=== PATIENT | female | born 1950 | race Caucasian/White ===

== ENCOUNTER → 2016-06-23 | Outpatient (CLI) | payer OTHER ==
[~2016-06-23] MED LIST: ADVIN25/60 INH; ALBU1AER9 INH; ASPI1TAB83 PO; CHOL1TAB46 PO; COEN100C7 PO; LEVO88TA PO; OMEP20CA9 PO; PRVC/10 PO; ZOLP5TAB PO
[2016-06-23 14:03] LABS: BASO % 0.8 %; BASO ABS # 0.06 K/uL (0-0.2); COMPLETE YES; EOS % 3.6 %; HEMATOCRIT 42.7 % (37-47); LYMPH % 31.1 %; LYMPH ABS # 2.39 K/uL (1.2-3.4); MEAN CELL VOLUME 85.7 fL (80-100); MEAN CORPUSCULAR HEMOGLOBIN 28.9 pg (25-34); MEAN CORPUSCULAR HGB CONC 33.7 g/dl (32-36); MEAN PLATELET VOLUME 10.5 fL (7.4-10.4); MONO % 5.6 %; NEUT % 58.9 %; PLATELET COUNT 299 K/uL (130-400); RED BLOOD COUNT 4.98 M/uL (4.2-5.4); WHITE BLOOD COUNT 7.69 K/uL (4.8-10.8)
[2016-06-23 14:15] LABS: ALT/SGPT 22 U/L (12-78); BLOOD UREA NITROGEN 12 mg/dl (7-18); BUN/CREATININE RATIO 14.4 (10-20); C-REACTIVE PROTEIN 0.81 mg/dl (0-0.29); CALCIUM 8.7 mg/dl (8.5-10.1); CARBON DIOXIDE 25 mmol/L (21-32); CHLORIDE 107 mmol/L (98-107); GLUCOSE 104 mg/dl (70-99); POTASSIUM 3.7 mmol/L (3.5-5.1); SODIUM 141 mmol/L (136-145)
[2016-06-23 14:25] LABS: ALKALINE PHOSPHATASE 75 U/L (45-117); AST/SGOT 18 U/L (15-37); RHEUMATOID FACTOR < 10.0 U/mL (0-15)
[2016-06-23 18:50] LABS: LYME DISEASE AB IGM NEG (NEG)
[2016-06-23 18:51] LABS: LYME DISEASE AB IGG NEG (NEG)
[2016-06-26 01:27] LABS: CYCLIC CITRULLINATED PEPT IGG <16 UNITS (<20)
== END | disposition home or self-care (01) ==
LOC: C.LABBC 10:03
PROVIDERS: ATTEND Family Medicine
DX: M79.1 Myalgia (principal)

== ENCOUNTER → 2016-06-28 | Day surgery (SDC) | payer OTHER ==
[2016-06-16 12:33] VITALS: BMI 27.0
[~2016-06-28] VITALS: Ht 162.6 cm; Wt 72.7 kg
[~2016-06-28] MED LIST changes: +FENTANYL CITRATE INJ 50 MCG/1 ML 2 ML VIAL ONE; +LIDOCAINE HCL 2% 2 ML VIAL (20MG/ML) ONE; +PROPOFOL IV EMULSION 10 MG/ML 20 ML VIAL IV ONE; +SODIUM CHLORIDE 0.9% 500ML 500 ML IV ONE
[2016-06-28 14:35] VITALS: Ht 162.6 cm; Wt 72.7 kg
--- NOTE | 2016-06-28 15:04 | Endo History and Physical ---
History & Physical Date of Service: Jun 28, 2016. Chief Complaint: reflux Referring Physician: Camryn AGUILAR History of Present Illness 65 yo CF who presents for EGD secondary to GERD. Past Medical History Asthma, Reflux, Thyroid Disease Past Surgical History Hx Cardiac Surgery: Yes (HEART CATH-NO STENTS) Hx Internal Defibrillator: No Hx Pacemaker: No Hx Abdominal Surgery: Yes (JENIFFER BSO) Hx of Implantable Prosthesis: No Hx Post-Op Nausea and Vomiting: Yes Hx Cancer Surgery: No Hx Thoracic Surgery: No Hx Orthopedic: Yes (RT/LEFT KNEE ARTHROSCOPY, LT SHOULDER TISSURE REMOVAL) Hx Urinary Tract Surgery: No Family History None Social History Smoking Status: Current Every Day Smoker Hx Substance Use: No Hx Alcohol Use: Yes (RARELY) Allergies Coded Allergies: Bacitracin (Verified Allergy, Intermediate, redness, 06/28/16) Polymyxin B (Verified Allergy, Intermediate, redness, 06/28/16) Amoxicillin (Verified Allergy, Unknown, RASH, 06/28/16) Citalopram (Verified Allergy, Unknown, unkn, 06/28/16) Codeine (Verified Adverse Reaction, Unknown, n/v, 06/28/16) Morphine and Related (Verified Adverse Reaction, Unknown, N/V, 06/28/16) Moxifloxacin (Verified Adverse Reaction, Unknown, nausea, 06/28/16) Oxycodone (Verified Adverse Reaction, Unknown, NAUSEA, 06/28/16) Statins (Verified Adverse Reaction, Unknown, muscle weakness, 06/28/16) Tramadol (Verified Adverse Reaction, Unknown, nausea, 06/28/16) Current Medications Reported Home Medications Medications Dose Route/Sig Max Daily Dose Days Date Category Advair Diskus 250/50 60 Dose (Fluticasone Prop/Salmeterol) 1 Ea Aerp 1 Puff INH BID PRN 06/16/16 Reported Ambien (Zolpidem Tartrate) 5 Mg Tab 5 Mg PO HS 06/16/16 Reported Coq10 (Coenzyme Q10 (Ubidecarenone)) 100 Mg Cap 1 Cap PO QAM 06/16/16 Reported Vitamin D3 (Cholecalciferol) 5,000 Unit Tab 1 Tab PO QAM 06/16/16 Reported Proair Hfa (Albuterol) Aers 2 Puff INH Q4H PRN 07/14/15 Reported Synthroid (Levothyroxine Sodium) 88 Mcg Tab 1 Tab PO QAM 30 07/14/15 Reported Aspirin 81 Mg Tab 1 Tab PO QAM 30 07/14/15 Reported Vital Signs Weight (Kilograms): 72.73 Height (Feet): 5 Height (Inches): 4 Physical Exam General Appearance: WD/WN, no apparent distress Respiratory/Chest: Auscultation: breath sounds normal Cardiovascular: Heart Auscultation: RRR Abdomen: Bowel Sounds: normal Inspection & Palpation: soft, non-distended, no tenderness, guarding & rebound Assessment and Plan Assessment: 65 yo CF who presents for EGD secondary to GERD. Plan: Proceed with EGD.
--- NOTE | 2016-06-28 15:47 | GI REPORT ---
Procedure Date: 06/28/2016 2:30 PM Procedure: Upper GI endoscopy Indications: Gastro-esophageal reflux disease Medicines: Monitored Anesthesia Care Complications: No immediate complications. Estimated Blood Loss: Estimated blood loss: none. Procedure: Pre-Anesthesia Assessment: - Prior to the procedure, a History and Physical was performed, and patient medications and allergies were reviewed. The patient's tolerance of previous anesthesia was also reviewed. The risks and benefits of the procedure and the sedation options and risks were discussed with the patient. All questions were answered, and informed consent was obtained. Prior Anticoagulants: The patient has taken aspirin, last dose was 1 day prior to procedure. ASA Grade Assessment: II - A patient with mild systemic disease. After reviewing the risks and benefits, the patient was deemed in satisfactory condition to undergo the procedure. After obtaining informed consent, the endoscope was passed under direct vision. Throughout the procedure, the patient's blood pressure, pulse, and oxygen saturations were monitored continuously. The scope was introduced through the mouth, and advanced to the second part of duodenum. The upper GI endoscopy was accomplished without difficulty. The patient tolerated the procedure well. Findings: The esophagus was normal. Localized minimal inflammation characterized by erythema was found in the gastric antrum. Biopsies were taken with a cold forceps for histology. The examined duodenum was normal. Impression: - Normal esophagus. - Gastritis. Biopsied. - Normal examined duodenum. Recommendation: - Resume previous diet. - Use Protonix (pantoprazole) 40 mg PO daily. - Continue present medications. - Await pathology results. - Return to GI office as previously scheduled. Abdiaziz Toro DO 06/28/2016 3:47:15 PM This report has been signed electronically. Note Initiated On: 06/28/2016 2:30 PM I attest to the content of the Intraoperative Record and orders documented therein, exceptions below
--- NOTE | 2016-06-28 15:47 | Discharge Instructions ---
Endoscopy Patient Instructions Date / Procedure(s) Performed Jun 28, 2016. EGD Allergy Information Coded Allergies: Bacitracin (Verified Allergy, Intermediate, redness, 06/28/16) Polymyxin B (Verified Allergy, Intermediate, redness, 06/28/16) Amoxicillin (Verified Allergy, Unknown, RASH, 06/28/16) Citalopram (Verified Allergy, Unknown, unkn, 06/28/16) Codeine (Verified Adverse Reaction, Unknown, n/v, 06/28/16) Morphine and Related (Verified Adverse Reaction, Unknown, N/V, 06/28/16) Moxifloxacin (Verified Adverse Reaction, Unknown, nausea, 06/28/16) Oxycodone (Verified Adverse Reaction, Unknown, NAUSEA, 06/28/16) Statins (Verified Adverse Reaction, Unknown, muscle weakness, 06/28/16) Tramadol (Verified Adverse Reaction, Unknown, nausea, 06/28/16) Discharge Date / Findings Jun 28, 2016. Gastritis s/p biopsies Medication Instructions Stopped Medication(s): stopped all medication OK to resume all medications today as prescribed Reported Home Medications Medications Dose Route/Sig Max Daily Dose Days Date Category Advair Diskus 250/50 60 Dose (Fluticasone Prop/Salmeterol) 1 Ea Aerp 1 Puff INH BID PRN 06/16/16 Reported Ambien (Zolpidem Tartrate) 5 Mg Tab 5 Mg PO HS 06/16/16 Reported Coq10 (Coenzyme Q10 (Ubidecarenone)) 100 Mg Cap 1 Cap PO QAM 06/16/16 Reported Vitamin D3 (Cholecalciferol) 5,000 Unit Tab 1 Tab PO QAM 06/16/16 Reported Proair Hfa (Albuterol) Aers 2 Puff INH Q4H PRN 07/14/15 Reported Synthroid (Levothyroxine Sodium) 88 Mcg Tab 1 Tab PO QAM 30 07/14/15 Reported Aspirin 81 Mg Tab 1 Tab PO QAM 30 07/14/15 Reported Provider Instructions Activity Restrictions - No exercising or heavy lifting for 24 hours. - Do not drink alcohol the day of the procedure. - Do not drive a car or operate machinery until the day after the procedure. - Do not make any important decisions or sign important papers in 24 hours after the procedure. Following Day: - Return to full activity which may include returning to work/school. Diet Start your diet with liquids and light foods (jello, soup, juice, toast). Then eat your usual diet if not nauseated. Treatment For Common After Affects For mild abdominal pain, bloating, or excessive gas: - Rest - Eat lightly - Lie on right side Follow-Up Information Follow-up with Camryn AGUILAR as scheduled Anesthesia Information What You Should Know You have had a procedure that required some medicine to reduce anxiety and discomfort. This treatment is called moderate sedation. After receiving the treatment, you may be sleepy, but you will be able to breathe on your own. The effects of the treatment may last for several hours. Follow these instructions along with Activity/Diet recommendations noted above: * Do NOT do anything where dizziness or clumsiness would be dangerous. * Rest quietly at home today, then you can be up and about tomorrow. * Have a responsible person stay with you the rest of today. * You may have had an I.V. today. If so, you may take the dressing off later today. Recommendations Call your doctor if: * Trouble breathing * Continuous vomiting for more than 24 hours * Temperature above 101 degrees * Severe abdominal pain or bloating * Pain not relieved by pain medicine ordered * There is increased drainage or redness from any incision * A large amount of rectal bleeding greater than 2-3 tablespoons. (If you had a polyp/s removed or have hemorrhoids, a small amount of blood - from the rectum is to be expected.) * You have any unanswered questions or concerns. IN THE EVENT OF A SERIOUS EMERGENCY, GO TO THE NEAREST EMERGENCY ROOM Your discharge instructions were prepared by provider Abdiaziz Toro. Patient Instructions Signature Page Jessie Das Patient (or Guardian) Signature/Date: I have read and understand the instructions given to me by my caregivers. Caregiver/RN/Doctor Signature/Date: The above-named patient and/or guardian has received patient instructions on this date. + Original Patient Signature Page (only) stays with chart. Please make copy for patient.
[2016-06-28 16:03] VITALS: BP 129/76; PULSE 74; O2SAT 96
--- NOTE | 2016-06-28 16:04 | Anesthesiology Progress Note ---
Anesthesia Post Op Note Date & Time Jun 28, 2016 at 16:04 Vital Signs Pain Intensity: 0 Vital Signs Past 12 Hours Date Time Temp Pulse Resp B/P Pulse Ox O2 Delivery O2 Flow Rate FiO2 06/28/16 15:48 80 16 137/68 95 Room Air 06/28/16 14:45 36.6 70 18 169/83 99 Room Air Notes Mental Status: alert / awake / arousable, participated in evaluation Pt Amnestic to Procedure: Yes Nausea / Vomiting: adequately controlled Pain: adequately controlled Airway Patency, RR, SpO2: stable & adequate BP & HR: stable & adequate Hydration State: stable & adequate Anesthetic Complications: no major complications apparent
== END | disposition home or self-care (01) ==
LOC: C.GI 13:55
PROVIDERS: ATTEND Internal Medicine
DX: K31.89 Other diseases of stomach and duodenum (principal); K21.9 Gastro-esophageal reflux disease without esophagitis; F17.210 Nicotine dependence, cigarettes, uncomplicated; E07.9 Disorder of thyroid, unspecified

== ENCOUNTER → 2016-08-14 | Outpatient (CLI) | payer OTHER ==
[~2016-08-14] MED LIST changes: +ALBU18002 INH; +ATOR10TA82 PO; +CEPH500C2 PO; +CYAN100020 PO; -FENTANYL CITRATE INJ 50 MCG/1 ML 2 ML VIAL ONE; +FURO-85 PO; +HYDR-5688 PO; -LIDOCAINE HCL 2% 2 ML VIAL (20MG/ML) ONE; +NTRGSL/4 UT; -OMEP20CA9 PO; +PANT40TA PO; +PRED50TA PO; -PROPOFOL IV EMULSION 10 MG/ML 20 ML VIAL IV ONE; -PRVC/10 PO; -SODIUM CHLORIDE 0.9% 500ML 500 ML IV ONE; +ZNTT/150 PO
--- NOTE | 2016-08-15 05:56 | PAP/PSG TECHNICIAN REPORT ---
[facility] Water Attendant Polysomnogram Report Study name: None Report date: 08/15/2016 Study date: 08/14/2016 Referring Physician: DR. GOMEZ Name: YARA DAS Interpreting Physician: Mo Moulton D.O. Date of : 1950 Water Attendant: Abdifatah Driver RPSGT. Sex: Female Age: 65 StudyType: PSG Weight: 161 lbs Height: 65 years, Height 5' 4" BMI: 27.63 Medications: OMEPRAZOLE 20 MG, RANITIDINE HCL 300 MG, ADVAIR DISKUS, PRO AIR HFA 108 90 BASE, PROVASTATIN SODIUM 10 MG, LEVOTHYROXINE SODIUM 88 MCG, ZOLPIDEM TARTRATE 5 MG, ASPIRIN 81 MG, NITROSTAT 0.4 MG, FUROSEMIDE 20 MG Patient History PATIENT HAS HISTORY OF FATIGUE AND DAYTIME SLEEPINESS. SHE GENERALLY HAS INSOMNIA A FEW TIMES A WEEK. SHE HAD A SLEEP STUDY DONE IN 2011 THAT SHOWED MILD PABLO. SHE IS HERE TODAY FOR AN EVALUATION OF PABLO. ESS = 7 RM 5 Parameters Monitored NPSG: E1-M2, E2-M1, Fp1-M2, Fp2-M1, F3-M2, F4-M2, F4-M1, C3-M2, C4-M2, C4-M1, O1-M2, O2-M2, O2-M1, T3-M2, T4-M1, P3-M2, P4-M1, CHIN1, CHIN2, HR, EKG, Legs, PFLOW, SNOR, FLOW, CFLOW, Tidal Volume, THOR, ABDO, SpO2, PLTH, CPRESS, ETCO2 Wave, ETCO2, pH Sleep Architecture Sleep Stages Time at Lights Off 10:11:05 PM STAGES Time (min.) TST (%) Time at Lights On 5:30:05 AM Wake 49.0 -- Total Recording Time (TRT) 439.50 min. N1 8.0 2 Total Sleep Period (TSP) 399.5 min. N2 156.0 40 Total Sleep Time (TST) 390.0min. N3 137.0 35 Awake Time 49.5 min. REM 89.0 23 Wake after Sleep Onset 10.0 min. Sleep Efficiency (SE) 89 % Sleep Onset Latency (HATTIE) 39.0 min. Number of Stage 1 Shifts None Awakenings 8 Stage Changes 49 Number of REM periods 5 REM 89.0 23 REM Latency 64.0 min. NREM 301.0 77 Body Position Analysis Supine Right Left Side Prone Vertical Total Sleep Time (min.) 20.9 0.0 390.0 390.00 0.0 0.0 Total Sleep Time (%) 0% 0% 100% 100 0% N/A% Total Sleep Time REM (min.) 0.0 0.0 89.0 None 0.0 0.0 Total Sleep Time NREM (min.) 0.0 0.0 301.0 None 0.0 0.0 Intermittent Wake (min.) 20.9 0.0 28.1 None 0.0 0.0 Total Sleep Period (%) 0% None None None None None Arousals Myoclonus (PLM) * Events Count Index Events Count Index Spontaneous 11 2 Events Awake (PLMW) 45 55.1 Respiratory 2 0.3 Events Asleep w/ Arousal (PLMA) 9 1.4 PLM 9 1 Events Asleep w/o Arousal (PLMS) 102 15.7 Snoring 2 0 Total Asleep 111 17.1 Total 24 4 Total 156 21 Respiratory Analysis * CA OA MA CH H RERA Total Count 1 25 0 0 49 0 75 Index 0.2 3.8 0.0 0 7.5 0 11.5 Mean Duration 17.2 16.7 0.0 0.00 21.0 0.0 19.5 Longest Duration 17.2 35.5 0.0 0.00 0.0 0.0 56.1 Respiratory Event Summary Total Supine ~Supine Right Left Prone REM NREM Apneas Count 26 N/A 26 N/A 26 N/A 23 3 Index 4.0 N/A 4 N/A 4.0 N/A 16 1 Hypopneas (4% Desat) Count 49 N/A 49 N/A 49 N/A 46 3 Index 7.5 N/A 8 N/A 7.5 N/A 31.0 0.6 Apneas & All Hypopneas Count 75 N/A 75 N/A 75 N/A 69 6 Index 11.5 N/A 12 N/A 12 N/A 46.5 1.2 Respiratory Events ([place]+All Hyp+RERA) Count 75 N/A 75 N/A 75 N/A 69 6 Index 11.5 N/A 12 N/A 11.5 N/A 46.5 1.2 Respiratory Related Arousal Count 2 N/A 2 N/A 2 N/A 1 1 Index 0.3 N/A 0 N/A 0 N/A 1 0 Snoring Analysis Supine Right Left Prone REM NREM Total Snore duration 86.7 min Snores count N/A N/A 3,490 N/A 756 2,734 3,490 Snore mean duration 1.5 Sec Snores index N/A N/A 537 N/A 509.7 545.0 536.9 TST with snoring (%) 22.2% Desaturation Event Summary: Minimum %SpO2 Event Count Mean/Min/Max Duration(sec.) Desaturation Index % Time In Bed > 90 67 25.2 / 10.0 / 48.8 11.2 81.9 86 - 90 30 21.1 / 8.8 / 55.3 24.4 16.9 81 - 85 0 N/A 0.0 1.0 76 - 80 0 N/A 0.0 0.1 71 - 75 0 N/A 0.0 0.0 66 - 70 0 N/A 0.0 0.0 61 - 65 0 N/A 0.0 0.0 56 - 60 0 N/A 0.0 0.0 51 - 55 0 N/A 0.0 0.0 < 50 0 N/A 0.0 0.0 Total REM NREM Awake <50% 0.0 min. 0.0 min. 0.0 min. 0.0 min. 51 - 60% 0.0 min. 0.0 min. 0.0 min. 0.0 min. 61 - 70% 0.0 min. 0.0 min. 0.0 min. 0.0 min. 71 - 80% 0.7 min. 0.7 min. 0.0 min. 0.0 min. 81 - 90% 78.2 min. 34.5 min. 42.4 min. 1.3 min. 91 - 100% 357.7 min. 53.9 min. 258.4 min. 45.4 min. Average 92 91 92 94 Minimum SpO2 74 74 85 87 Desaturation Event Index 11.1 43.8 1.2 12.2 # Desat. Events below 89% 48 44 4 N/A Time(%) with Saturation below 89% 4.4 3.8 0.5 0.1 Time(min.) with Saturation below 89% 19.0 16.5 2.2 0.3 Time (mins) REM (mins) NREM (mins) % of TST SpO2 Below 90% 68 63 N5 7.7 SpO2 Below 88% 19 0 0 3 Heart Rate Analysis Min (bpm) Max (bpm) Average (bpm) Awake 69 127 76 NREM 64 94 74 REM 67 96 75 Overall 64 96 74 Supplemental O2 Values Minimum O2 level: None Value Start Time End Time Water Attendant Comments Ms. Das slept in the supine and left positions. No cardiac arrhythmia noted. Leg movements noted. No bruxism noted. Snoring was noted and scored as a 4 on a scale of 1 through 5. (0=no snoring, 5=snoring loud enough to be heard through a closed door or down the [address]) Ms. Das awoke to use the restroom 0 times during the night. Ms. Das stated I slept as well as I do when I am in my own bed. The final report will be interpreted and signed by a sleep physician. The completed physician report will then be placed in the patient medical record. Therapy (cm H2O) 0 TIB (min.) 439.0 TST (min.) 390.0 Sleep Onset (min.) 39.0 REM Onset From Sleep (min.) 64.0 Sleep Efficiency % 89 Wakefulness (%) 11 Wakefulness (min.) 49.5 NREM 1 (%) 2 NREM 1 (min.) 8.0 NREM 2 (%) 40 NREM 2 (min.) 156.0 NREM 3 (%) 35 NREM 3 (min.) 137.0 REM (%) 23 REM (min.) 89.0 # Arousals 24 Arousal Index 4 # Snore 3,490 Snore Index 536.9 AHI 11.5 AHI Supine N/A AHI Non-Supine 12 NREM AHI 1.2 REM AHI 46.5 RDI 11.5 # Obstructive Apnea 25 # Central Apnea 1 # Mixed Apnea 0 # Hypopneas 49 RERAs 0 Total Respiratory Events 83 Time Below SpO2 89% (min.) 18.7 Mean NREM SpO2 (%) 92 Mean REM SpO2 (%) 91 Mean Sleep SpO2 (%) 91 Min NREM SpO2 (%) 85 Min REM SpO2 (%) 74 Position Supine (min.) 20.9 Position Non-supine (min.) 390.0 LM Index Sleep 17.1 LM Index NREM 22.1 LM Index REM 0.0 Mean Heart Rate (bpm) 74 Min Heart Rate (bpm) 64
--- NOTE | 2016-08-17 15:05 | POLYSOMNOGRAPH REPORT ---
REFERRING PHYSICIAN: Dr Key CLINICAL DATA: The patient is a 65-year-old female. She has complaints of excessive daytime somnolence and feeling exhausted. She also has insomnia. Her [place] sleepiness scale score is 7. Her BMI is 27.63. This was an in-lab sleep study. SLEEP ARCHITECTURE: The total sleep period was 399.5 minutes. Total sleep time was 390.0 minutes. Sleep efficiency was 89%. Sleep onset latency was prolonged at 39 minutes. Wake after sleep onset was only 10 minutes. Sleep consisted of stage N1 2%, stage N2 40%, stage N3 35%, stage REM 23%. AROUSAL DATA: The patient had a total of 24 arousals including 11 spontaneous arousals, 2 respiratory arousals, 9 PLM arousals, and 2 snoring arousals. The arousal index was 4. PERIODIC LIMB MOVEMENTS DATA: The patient had a total of 111 periodic limb movements of sleep for an index of 17.1. Nine of these were associated with arousals for a PLM arousal index of only 1.4. ELECTROCARDIOGRAM: The patient's cardiac rates ranged from 64-96 beats per minute. No arrhythmias were noted. RESPIRATORY DATA: The patient had a total of 75 respiratory events including 1 central apnea, 25 obstructive apneas, and 49 hypopneas. The apnea-hypopnea index was elevated at 11.5 events per hour. This reflects mild sleep apnea. The longest apnea was 35.5 seconds. The average hypopnea was 21 seconds. OXIMETRY DATA: The average saturation was 92%. The minimum saturation was 74%. She had a total of 19 minutes with saturations less than 88%. FRAME FIXER'S COMMENTS: The patient slept in the supine and left positions. No cardiac arrhythmia noted. Leg movements noted. No bruxism noted. Snoring was noted and scored as a 4 on a scale of 1 through 5. IMPRESSION: 1. Obstructive sleep apnea. 2. Fibromyalgia by history. COMMENTS: The patient has mild apnea. As noted, her apnea-hypopnea index was 11.5. Her sleep efficiency was normal. Sleep architecture was normal. She did have some desaturations likely related to sleep disordered breathing. The patient historically has significant symptoms. She also has asthma and hypothyroidism by history in addition to fibromyalgia. Treatment would be advised. RECOMMENDATIONS: 1. It is advised that patient be given a trial of nasal CPAP. She could be treated with auto CPAP. The alternative would be referral back to the sleep lab for a CPAP titration study in the lab. 2. If patient refuses treatment with nasal CPAP therapy, consideration could be given to treatment with an oral appliance if she has relatively good dentition. 3. The patient has a mild elevation of body mass index at 27.63. A weight reduction program is advised. ARIA
== END | disposition home or self-care (01) ==
LOC: C.NEUR 21:00
PROVIDERS: ATTEND Family Medicine
DX: G47.19 Other hypersomnia (principal)

== ENCOUNTER 2016-09-01 18:24 | Emergency (ER) | payer OTHER ==
[~2016-09-01] VITALS: Ht 162.6 cm; Wt 75.5 kg
[~2016-09-01 18:24] MED LIST changes: -ALBU18002 INH; -ATOR10TA82 PO; -CEPH500C2 PO; -CYAN100020 PO; -FURO-85 PO; -HYDR-5688 PO; -NTRGSL/4 UT; -PANT40TA PO; -PRED50TA PO; -ZNTT/150 PO
[2016-09-01 18:27] VITALS: TEMP 36.7; Ht 162.6 cm; Wt 75.5 kg
[2016-09-01] MEDS ORDERED: KETOROLAC TROMETHAMINE 30 MG/ML VIAL IV STA (19:05)
[2016-09-01] MEDS ORDERED: ONDANSETRON INJ 2 MG/ML 2 ML VIAL IV STA (19:05)
[2016-09-01 19:41] LABS: BASO % 0.7 %; BASO ABS # 0.05 K/uL (0-0.2); COMPLETE YES; EOS % 2.7 %; HEMATOCRIT 40.5 % (37-47); IG% 0.1 %; LYMPH % 33.3 %; LYMPH ABS # 2.25 K/uL (1.2-3.4); MEAN CORPUSCULAR HEMOGLOBIN 29.3 pg (25-34); MEAN CORPUSCULAR HGB CONC 34.1 g/dl (32-36); MEAN PLATELET VOLUME 10.1 fL (7.4-10.4); MONO % 6.5 %; NEUT % 56.7 %; PLATELET COUNT 269 K/uL (130-400); RED BLOOD COUNT 4.71 M/uL (4.2-5.4); WHITE BLOOD COUNT 6.75 K/uL (4.8-10.8)
--- NOTE | 2016-09-01 20:06 | DIAGNOSTIC IMAGING REPORT ---
CT SCAN OF THE BRAIN WITHOUT IV CONTRAST CLINICAL HISTORY: Headache. COMPARISON STUDY: CT of the brain dated 11/18/2013. TECHNIQUE: Unenhanced axial CT scan of the brain is performed from the vertex to the skull base. Automated dose control exposure was utilized. CT DOSE: 537.48 mGy.cm FINDINGS: Brain parenchyma: The brain parenchyma is normal in appearance. There is no hemorrhage, mass effect, or evidence of acute territorial ischemia by CT criteria. Irizarry-white matter is preserved. No extra-axial fluid collection is seen. Ventricles, sulci, cisterns: Normal in configuration. Intracranial vasculature: There is mild atherosclerotic calcification of the cavernous carotid arteries. Calvarium: Unremarkable. Sinuses and mastoids: Findings suggest previous paranasal sinus surgery. The visualized paranasal sinuses are clear. The mastoid air cells are well pneumatized. Orbits: The bony orbits are grossly intact. IMPRESSION: No acute intracranial abnormality. Electronically signed by: Kory Li M.D. 09/01/2016 8:04 PM Dictated Date/Time: 09/01/2016 8:03 PM
[2016-09-01 20:11] LABS: BUN/CREATININE RATIO 19.9 (10-20); CALCIUM 8.5 mg/dl (8.5-10.1); CREATININE 0.78 mg/dl (0.60-1.20); POTASSIUM 4.3 mmol/L (3.5-5.1)
--- NOTE | 2016-09-01 20:38 | EMERGENCY ROOM VISIT NOTE ---
History Report prepared by [place]: Che Mcelroy Under the Supervision of: Dr. Angela Flores D.O. First contact with patient: 18:43 Chief Complaint: HEADACHE Stated Complaint: MIGRAINE History of Present Illness The patient is a 65 year old female who presents to the Emergency Room with complaints of a persistent left-sided headache that started 11 hours ago, around 0830. She is also experiencing left-sided neck pain that radiates across her neck and into her shoulders. The patient states that she also experiencing nausea, but denies vomiting. She also denies abdominal pain, arm or leg weakness , and leg cramping or swelling. The patient attempted to relieve her headache with Advil Migraine, but it offered her no relief. She states that her typical migraines are relieved in 15 minutes with Advil Migraine. The patient has a history of migraines, but she states that she does not get them very often. Her most recent migraine was about 1 month ago. She states that this is the worst migraine that she has ever experienced. The patient is unsure of if she has ever had a CT of her head. She does not follow with a neurologist for her migraines. The patient states that she has been eating and drinking normally. The patient adds that she has been experiencing a cough and was recently diagnosed with bronchitis, which she is on a z-pack for. Source of History: patient Onset: 11 hours ago, around 0830 Position: head Quality: other (left-sided headache) Timing: other (persistent) Modifying Factors (Relieving): other (None) Associated Symptoms: + back pain (upper, in shoulder blades), + nausea, + neck pain, No abdominal pain, No vomiting, No weakness Note: no leg cramping or swelling Review of Systems See HPI for pertinent positives & negatives. A total of 10 systems reviewed and were otherwise negative. Past Medical & Surgical Medical Problems: (1) Asthma (2) Hyperlipidemia (3) Hypothyroidism (4) Migraines Family History FH: heart disease FHx: cancer Social History Smoking Status: Current Every Day Smoker Alcohol Use: none Drug Use: none Marital Status: Housing Status: lives with family Occupation Status: retired Current/Historical Medications Scheduled Aspirin (Aspirin), 1 TAB PO QAM Cholecalciferol (Vitamin D3), 1 TAB PO QAM Coenzyme Q10 (Ubidecarenone) (Coq10), 1 CAP PO QAM Levothyroxine Sodium (Synthroid), 1 TAB PO QAM Zolpidem Tartrate (Ambien), 5 MG PO HS Scheduled PRN Albuterol (Proair Hfa), 2 PUFF INH Q4H PRN for SOB/Wheezing Fluticasone Prop/Salmeterol (Advair Diskus 250/50 60 Dose), 1 PUFF INH BID PRN for Shortness of Breath Allergies Coded Allergies: Bacitracin (Verified Allergy, Intermediate, redness, 06/28/16) Polymyxin B (Verified Allergy, Intermediate, redness, 06/28/16) Amoxicillin (Verified Allergy, Unknown, RASH, 06/28/16) Citalopram (Verified Allergy, Unknown, unkn, 06/28/16) Codeine (Verified Adverse Reaction, Unknown, n/v, 06/28/16) Morphine and Related (Verified Adverse Reaction, Unknown, N/V, 06/28/16) Moxifloxacin (Verified Adverse Reaction, Unknown, nausea, 06/28/16) Oxycodone (Verified Adverse Reaction, Unknown, NAUSEA, 06/28/16) Statins (Verified Adverse Reaction, Unknown, muscle weakness, 06/28/16) Tramadol (Verified Adverse Reaction, Unknown, nausea, 06/28/16) Physical Exam Vital Signs Date Time Temp Pulse Resp B/P Pulse Ox O2 Delivery O2 Flow Rate FiO2 09/01/16 20:54 65 18 166/99 96 09/01/16 18:27 36.7 84 16 149/91 95 Room Air Physical Exam HEENT: Head - normocephalic and atraumatic. Pupils are equal, round, and reactive to light. Extraocular eye muscles are intact and sclera are anicteric. Ears - bilaterally patent canals with noninjected tympanic membranes and no evidence of hemotympanum. Nose - moist nasal mucosa without discharge. Mouth - moist buccal mucosa. Oropharynx is nonerythematous and there is no tonsillar exudate or edema noted. Neck: Supple; no JVD, nuchal rigidity, cervical lymphadenopathy. Heart: Regular rate and rhythm. There is a normal S1 and S2 with no murmurs, clicks, or gallops appreciated. Lungs: Clear to auscultation bilaterally with no wheezes, rales, or rhonchi. Abdomen: Soft, completely nontender, nondistended, with good bowel sounds. There are no palpable pulsatile masses or hepatosplenomegaly. There is no guarding, rigidity, or rebound noted. Extremities: No evidence of cyanosis, clubbing, or edema. There are easily palpable peripheral pulses. Neuro:The patient is awake and alert, oriented to day, time, and place. Muscle strength is 5/5 in all 4 extremities. The patient has equal production aide strength and equal pedal push and pull. There are no cerebellar signs. Medical Decision & Procedures ER Provider Diagnostic Interpretation: CT results as stated below per my review and radiologist interpretation: CT SCAN OF THE BRAIN WITHOUT IV CONTRAST FINDINGS: Brain parenchyma: The brain parenchyma is normal in appearance. There is no hemorrhage, mass effect, or evidence of acute territorial ischemia by CT criteria. Irizarry-white matter is preserved. No extra-axial fluid collection is seen. Ventricles, sulci, cisterns: Normal in configuration. Intracranial vasculature: There is mild atherosclerotic calcification of the cavernous carotid arteries. Calvarium: Unremarkable. Sinuses and mastoids: Findings suggest previous paranasal sinus surgery. The visualized paranasal sinuses are clear. The mastoid air cells are well pneumatized. Orbits: The bony orbits are grossly intact. IMPRESSION: No acute intracranial abnormality. Electronically signed by: Kory Li M.D. 09/01/2016 8:04 PM Dictated Date/Time: 09/01/2016 8:03 PM Laboratory Results 09/01/16 19:27 Red Blood Count 4.71, Mean Corpuscular Volume 86.0, Mean Corpuscular Hemoglobin 29.3, Mean Corpuscular Hemoglobin Concent 34.1, Mean Platelet Volume 10.1, Neutrophils (%) (Auto) 56.7, Lymphocytes (%) (Auto) 33.3, Monocytes (%) (Auto) 6.5, Eosinophils (%) (Auto) 2.7, Basophils (%) (Auto) 0.7, Neutrophils # (Auto) 3.82, Lymphocytes # (Auto) 2.25, Monocytes # (Auto) 0.44, Eosinophils # (Auto) 0.18, Basophils # (Auto) 0.05 09/01/16 19:27 Test 09/01/16 19:27 White Blood Count 6.75 K/uL (4.8-10.8) Red Blood Count 4.71 M/uL (4.2-5.4) Hemoglobin 13.8 g/dL (12.0-16.0) Hematocrit 40.5 % (37-47) Mean Corpuscular Volume 86.0 fL (80-100) Mean Corpuscular Hemoglobin 29.3 pg (25-34) Mean Corpuscular Hemoglobin Concent 34.1 g/dl (32-36) Platelet Count 269 K/uL (130-400) Mean Platelet Volume 10.1 fL (7.4-10.4) Neutrophils (%) (Auto) 56.7 % Lymphocytes (%) (Auto) 33.3 % Monocytes (%) (Auto) 6.5 % Eosinophils (%) (Auto) 2.7 % Basophils (%) (Auto) 0.7 % Neutrophils # (Auto) 3.82 K/uL (1.4-6.5) Lymphocytes # (Auto) 2.25 K/uL (1.2-3.4) Monocytes # (Auto) 0.44 K/uL (0.11-0.59) Eosinophils # (Auto) 0.18 K/uL (0-0.5) Basophils # (Auto) 0.05 K/uL (0-0.2) RDW Standard Deviation 45.0 fL (36.4-46.3) RDW Coefficient of Variation 14.3 % (11.5-14.5) Immature Granulocyte % (Auto) 0.1 % Immature Granulocyte # (Auto) 0.01 K/uL (0.00-0.02) Anion Gap 8.0 mmol/L (3-11) Est Creatinine Clear Calc Drug Dose 71.6 ml/min Estimated GFR () 92.5 Estimated GFR (Non- 79.8 BUN/Creatinine Ratio 19.9 (10-20) Calcium Level 8.5 mg/dl (8.5-10.1) Laboratory results per my review. Medications Administered Medications (Trade) Dose Ordered Sig/Ashley Route Start Time Stop Time Status Last Admin Dose Admin Ondansetron HCl (Zofran Inj) 4 mg NOW STAT IV 09/01/16 19:05 09/01/16 19:07 DC 09/01/16 19:40 4 MG Ketorolac Tromethamine (Toradol Inj) 30 mg NOW STAT IV 09/01/16 19:05 09/01/16 19:07 DC 09/01/16 19:41 30 MG Procedure Medications Administered Toradol IV Zofran IV ED Course 1852: Past medical records reviewed. The patient was evaluated in room A3. A complete history and physical exam was performed. An IV lock was initiated and labs are drawn as above. 1904: Ordered Toradol Inj 30 mg IV, Zofran Inj 4 mg IV. The patient went for CT scan of the brain as described above. 2028: Upon reevaluation, the patient feels much better. I discussed findings and results with her. She verbalized agreement of the treatment plan. She was discharged home. Medical Decision The patient is a 65 year old female who presents to the Emergency Room with complaints of a persistent left-sided headache that started 11 hours ago, around 0830. Differential diagnosis includes subarachnoid hemorrhage, tension headache, cluster headache, migraine, cervical strain. Lab Interpretation: Normal white count Stable H&H Normal glucose Normal renal function The patient had significant improvement in her symptoms after receiving IV Toradol. CT scan of the brain was unremarkable. We spent some time talking about the drastic change in weather over the past couple of days as a contributor to this migraine. I've asked patient to follow up with her PCP if the migraine persists that she may require some steroid therapy. Impression Primary Impression: Migraine Scribe Attestation The scribe's documentation has been prepared under my direction and personally reviewed by me in its entirety. I confirm that the note above accurately reflects all work, treatment, procedures, and medical decision making performed by me. Departure Information Dispostion Home / Self-Care Referrals Nidia Key DO (PCP) Forms HOME CARE DOCUMENTATION FORM, IMPORTANT VISIT INFORMATION Patient Instructions ED Headache Migraine, My [facility] Additional Instructions Rest. Take plenty of clear liquids Follow up with PCP if migraine persists Problem Qualifiers Primary Impression: Migraine Migraine type: without aura Status migrainosus presence: without status migrainosus Intractability: not intractable Qualified Codes: G43.009 - Migraine without aura, not intractable, without status migrainosus
[2016-09-01 20:54] VITALS: BP 166/99; PULSE 65; O2SAT 96
[2017-01-28] MEDS ORDERED: ATOR10TA82 PO (11:41)
[2017-01-28] MEDS ORDERED: PANT40TA PO (11:41)
[2017-01-28] MEDS ORDERED: ALBU18002 INH (11:41)
[2017-01-28] MEDS ORDERED: CYAN100020 PO (11:41)
[2017-01-28] MEDS ORDERED: FURO-85 PO (11:41)
[2017-01-28] MEDS ORDERED: ZNTT/150 PO (11:41)
[2017-01-28] MEDS ORDERED: NTRGSL/4 UT (11:41)
[2017-02-17] MEDS ORDERED: HYDR-5688 PO (12:32)
== END 2016-09-01 20:56 | disposition home or self-care (01) ==
LOC: C.EDB 18:25 → C.EDA 20:56
DX: G43.009 Migraine without aura, not intractable, without status migrainosus (principal); J45.909 Unspecified asthma, uncomplicated; E78.5 Hyperlipidemia, unspecified; E03.9 Hypothyroidism, unspecified; Z80.9 Family history of malignant neoplasm, unspecified; F17.210 Nicotine dependence, cigarettes, uncomplicated; Z79.82 Long term (current) use of aspirin; Z79.899 Other long term (current) drug therapy

== ENCOUNTER → 2016-11-10 | Outpatient (CLI) | payer OTHER ==
[~2016-11-10] MED LIST changes: +ALBU18002 INH; +ATOR10TA88 PO; +CEPH500C2 PO; +CYAN100020 PO; +FURO-85 PO; +NTRGSL/4 UT; +PANT40TA PO; +PRED50TA PO; +ZNTT/150 PO
--- NOTE | 2016-11-11 06:22 | PAP/PSG TECHNICIAN REPORT ---
[facility] Bench Molder Polysomnogram Report Study name: None Report date: 11/11/2016 Study date: 11/10/2016 Referring Physician: Alec Lua CRNP Name: YARA DAS Interpreting Physician: Mo Moulton D.O. Date of : 1950 Bench Molder: Maria A England [facility]. Sex: Female Age: 66 StudyType: PSG PAP Weight: 164.9 lbs Height: 66 years, Height 5' 4" BMI: 28.3 Medications: Ranitidine 150 mg, Advair Diskus 250-50 MCG, ProAir HFA 108 (90 Base), Vitamin D3, Levothyroxine Sodium 88 MCG, Zolpidem Tartrate 5 mg, Aspirin 81 mg, Nitrostat 0.4 mg, Triamcinolone Acetonide 0.1%, Furosemide 20 mg, Vitamin B-12, Pantoprazole 40 mg Patient History 66 yr. old female here for a new titration sleep study. Patients PSG was done 08/14/16 and had an AHI of 11.5. ESS 11/08. *patient did not know why she was hear tonight, and did not want anything on her face. Acclimating her to CPAP was difficult* Parameters Monitored NPSG: E1-M2, E2-M1, Fp1-M2, Fp2-M1, F3-M2, F4-M2, F4-M1, C3-M2, C4-M2, C4-M1, O1-M2, O2-M2, O2-M1, T3-M2, T4-M1, P3-M2, P4-M1, CHIN1, CHIN2, HR, EKG, Legs, PFLOW, SNOR, FLOW, CFLOW, Tidal Volume, THOR, ABDO, SpO2, PLTH, CPRESS, ETCO2 Wave, ETCO2, pH Sleep Architecture Sleep Stages Time at Lights Off 11:08:59 PM STAGES Time (min.) TST (%) Time at Lights On 5:12:29 AM Wake 139.0 -- Total Recording Time (TRT) 364.00 min. N1 17.5 8 Total Sleep Period (TSP) 235.5 min. N2 111.0 49 Total Sleep Time (TST) 224.5min. N3 43.0 19 Awake Time 139.5 min. REM 53.0 24 Wake after Sleep Onset 123.0 min. Sleep Efficiency (SE) 62 % Sleep Onset Latency (HATTIE) 16.0 min. Number of Stage 1 Shifts None Awakenings 15 Stage Changes 60 Number of REM periods 2 REM 53.0 24 REM Latency 30.0 min. NREM 171.5 76 Body Position Analysis Supine Right Left Side Prone Vertical Total Sleep Time (min.) 64.4 0.0 224.5 224.50 0.0 0.2 Total Sleep Time (%) 0% 0% 100% 100 0% N/A% Total Sleep Time REM (min.) 0.0 0.0 53.0 None 0.0 0.0 Total Sleep Time NREM (min.) 0.0 0.0 171.5 None 0.0 0.0 Intermittent Wake (min.) 64.4 18.5 55.9 None 0.0 0.2 Total Sleep Period (%) 0% None None None None None Arousals Myoclonus (PLM) * Events Count Index Events Count Index Spontaneous 0 0 Events Awake (PLMW) 105 45.3 Respiratory 0 0.0 Events Asleep w/ Arousal (PLMA) 16 4.3 PLM 16 4 Events Asleep w/o Arousal (PLMS) 36 9.6 Snoring 4 1 Total Asleep 52 13.9 Total 20 5 Total 157 26 Respiratory Analysis * CA OA MA CH H RERA Total Count 0 0 0 0 2 0 2 Index 0.0 0.0 0.0 0 0.5 0 0.5 Mean Duration 0.0 0.0 0.0 0.00 21.5 0.0 21.5 Longest Duration 0.0 0.0 0.0 0.00 0.0 0.0 26.5 Respiratory Event Summary Total Supine ~Supine Right Left Prone REM NREM Apneas Count 0 N/A 0 N/A 0 N/A 0 0 Index 0.0 N/A 0 N/A 0.0 N/A 0 0 Hypopneas (4% Desat) Count 2 N/A 2 N/A 2 N/A 1 1 Index 0.5 N/A 1 N/A 0.5 N/A 1.1 0.3 Apneas & All Hypopneas Count 2 N/A 2 N/A 2 N/A 1 1 Index 0.5 N/A 1 N/A 1 N/A 1.1 0.3 Respiratory Events (Lumber Cutter+All Hyp+RERA) Count 2 N/A 2 N/A 2 N/A 1 1 Index 0.5 N/A 1 N/A 0.5 N/A 1.1 0.3 Respiratory Related Arousal Count 0 N/A 0 N/A 0 N/A 0 0 Index 0.0 N/A 0 N/A 0 N/A 0 0 Snoring Analysis Supine Right Left Prone REM NREM Total Snore duration 2.2 min Snores count N/A N/A 58 N/A 2 56 58 Snore mean duration 2.2 Sec Snores index N/A N/A 16 N/A 2.3 19.6 15.5 TST with snoring (%) 1.0% Desaturation Event Summary: Minimum %SpO2 Event Count Mean/Min/Max Duration(sec.) Desaturation Index % Time In Bed > 90 45 35.0 / 9.8 / 60.0 8.0 95.3 86 - 90 0 N/A 0.0 4.3 81 - 85 1 14.3 / 14.3 / 14.3 45.0 0.4 76 - 80 0 N/A 0.0 0.0 71 - 75 0 N/A 0.0 0.0 66 - 70 0 N/A 0.0 0.0 61 - 65 0 N/A 0.0 0.0 56 - 60 0 N/A 0.0 0.0 51 - 55 0 N/A 0.0 0.0 < 50 0 N/A 0.0 0.0 Total REM NREM Awake <50% 0.0 min. 0.0 min. 0.0 min. 0.0 min. 51 - 60% 0.0 min. 0.0 min. 0.0 min. 0.0 min. 61 - 70% 0.0 min. 0.0 min. 0.0 min. 0.0 min. 71 - 80% 0.2 min. 0.0 min. 0.0 min. 0.2 min. 81 - 90% 16.5 min. 6.1 min. 8.6 min. 1.8 min. 91 - 100% 339.5 min. 46.9 min. 162.7 min. 129.9 min. Average 93 92 92 94 Minimum SpO2 80 89 88 80 Desaturation Event Index 7.6 1.1 1.4 17.7 # Desat. Events below 89% 1 N/A N/A 1 Time(%) with Saturation below 89% 0.6 0.0 0.2 0.5 Time(min.) with Saturation below 89% 2.3 0.0 0.6 1.7 Time (mins) REM (mins) NREM (mins) % of TST SpO2 Below 90% 1 1 NN/A 2.9 SpO2 Below 88% 0 0 0 0 Heart Rate Analysis Min (bpm) Max (bpm) Average (bpm) Awake 65 127 73 NREM 61 84 71 REM 63 81 71 Overall 61 84 71 Supplemental O2 Values Minimum O2 level: None Value Start Time End Time Bench Molder Comments MS. Das slept in the right, left, and supine positions. No cardiac arrhythmia. PLMs noted. No bruxism noted. CPAP was initiated at +4 CMH2O room air and up-titrated to an level of +5CMH2O Cflex3 . A P10, was used during titration. MS. Das awoke to use the restroom @ 3:20 am and stated she would not be able to get back to sleep.MS. Das stated, "that hurt my nose ". The final report will be interpreted and signed by a sleep physician. The completed physician report will then be placed in the patient medical record. Therapy Event: Therapy (cm H20) 4 5 Total Time at Pressure (min.) 168.2 195.3 TST at Pressure (min.) 144.7 79.8 # Periods 1 1 Sleep Onset (min.) 16.0 0.0 REM Onset (min.) 46.0 44.3 Sleep Efficiency % 86 40 Wakefulness (%) 14.0 59.1 Wakefulness (min.) 23.5 115.5 NREM 1 (%) 8.3 1.8 NREM 1 (min.) 14.0 3.5 NREM 2 (%) 35.5 26.3 NREM 2 (min.) 59.7 51.3 NREM 3 (%) 23.5 1.8 NREM 3 (min.) 39.5 3.5 REM (%) 18.7 11.0 REM (min.) 31.5 21.5 # Arousals 12 8 Arousal Index 5.0 6.0 # Snore 33 25 Snore Index 13.7 18.8 AHI 0.4 0.8 AHI Supine N/A N/A AHI Non-Supine 0.4 0.8 NREM AHI 0.0 1.0 REM AHI 1.9 0.0 RDI 0.4 0.8 # Obstructive 0 0 # Central Ap 0 0 # Mixed 0 0 # Hypopneas 1 1 RERAS 0 0 Total Respiratory Events 1 1 Time Below SpO2 89.00% (min.) 0.0 0.6 Mean NREM SpO2 (%) 93 92 Mean REM SpO2 (%) 92 92 Mean Sleep SpO2 (%) 93 92 Min NREM SpO2 (%) 91 88 Min REM SpO2 (%) 89 89 Position Supine (min.) 0.0 0.0 Position Non-supine (min.) 144.7 79.8 LM Index Sleep 12.9 15.8 LM Index NREM 14.8 19.6 LM Index REM 5.7 5.6 Mean Heart Rate (bpm) 70 73 Min Heart Rate (bpm) 61 67
--- NOTE | 2016-11-15 07:46 | Sleep Study ---
Sleep Study Report Date of Service: 11/11/2016 Sleep Study Report Clinical data: The patient is a 66-year-old female with a BMI of 28.3. She has symptoms of excessive daytime somnolence, exhaustion, and insomnia. She underwent a 1st night study on 08/14/2016. This showed obstructive sleep apnea with an apnea- hypopnea index of 11.5. She [facility]ration study. Sleep architecture: The total sleep period was 235.5 minutes. The total sleep time was 224.5 minutes. Sleep efficiency was moderately reduced to 62 percent. Sleep latency was normal at 16 minutes. Wake after sleep onset was prolonged to 123 minutes. REM latency was short at 30 minutes. Sleep consisted of stage N1 8 percent, stage N2 49 percent, stage N3 19 percent , stage REM 24 percent. Arousal data: Patient had 20 arousals including 16 PLM arousals and 4 snoring arousals. The arousal index was 5. PLM data: Patient had a total of 52 periodic limb movements of sleep for an index of 13.9. There were 16 arousals associated with limb movements for a PLM arousal index of 4.3. EKG: The underlying cardiac rhythm was normal sinus. The cardiac rates ranged from 61 to 84 beats per minute. No arrhythmia was noted. Respiratory data: The patient's nocturnal events were treated with nasal CPAP. She had a total of 2 respiratory events, both of which were hypopneas. Hypopneas were scored according to the 4 percent desaturation rule. The mean duration of the hypopneas was 21.5 seconds. The apnea-hypopnea index was normal at 0.5. Oximetry data: The average oxygen saturation for the night was 93 percent. The minimum saturation was 80 percent. There was a total of just 2.3 minutes with saturations less than 89 percent. Associate Professor Of Education's comments: The patient slept on the right, left, and supine positions. Acclimating her to CPAP was difficult. No cardiac arrhythmia. PLMS were noted. No bruxism noted. CPAP was initiated at 4 centimeters and up titrated to a level of 5 centimeters with C flex 3. A P 10 mask was used during titration. The patient did complain that the mask hurt her nose. Impressions: 1. Obstructive sleep apnea-resolve with nasal CPAP at 5 centimeters Comments: Patient fell asleep fairly quickly with CPAP. For approximately 4 hours she slept fairly well. She had a short REM latency. This would not be unexpected with resolution of sleep disordered breathing. Her apnea was resolved with only 5 centimeters of pressure. However she awakened approximately 3:20 a.m. and was unable to go back to sleep. Her oxygenation was essentially normal. Patient does have a history of comorbidities including asthma, hypothyroidism, and fibromyalgia. Recommendations: 1. It is suggested that the patient be started on nasal CPAP at 5 centimeters with C flex 3 2. It is suggested that she be ordered a nasal mask of choice. 3. The patient has a mild elevation of body mass index at 28.3. Weight loss would be advised. 4. It is suggested that she avoid sleeping in the supine position if possible. Typically there is more respiratory events in the supine position. 5. The patient should be followed up between day 31 day 90 after receiving the CPAP. Copies To 1: Mo Moulton DO; Alec Lua III, CRNP
== END | disposition home or self-care (01) ==
LOC: C.NEUR 20:00
PROVIDERS: ATTEND Nurse Practitioner Family
DX: G47.30 Sleep apnea, unspecified (principal)

== ENCOUNTER → 2016-12-28 | Outpatient (CLI) | payer OTHER ==
[2016-12-28 14:52] LABS: BASO % 0.9 %; BASO ABS # 0.05 K/uL (0-0.2); COMPLETE YES; EOS % 3.2 %; HEMATOCRIT 41.6 % (37-47); IG% 0.2 %; LYMPH % 36.7 %; LYMPH ABS # 2.08 K/uL (1.2-3.4); MEAN CELL VOLUME 86.7 fL (80-100); MEAN CORPUSCULAR HGB CONC 33.4 g/dl (32-36); MEAN PLATELET VOLUME 10.7 fL (7.4-10.4); MONO % 7.6 %; NEUT % 51.4 %; PLATELET COUNT 290 K/uL (130-400); WHITE BLOOD COUNT 5.66 K/uL (4.8-10.8)
[2016-12-28 15:04] LABS: ALT/SGPT 22 U/L (12-78); AMYLASE 44 U/L (25-115); BLOOD UREA NITROGEN 11 mg/dl (7-18); BUN/CREATININE RATIO 15.3 (10-20); CALCIUM 8.8 mg/dl (8.5-10.1); CARBON DIOXIDE 29 mmol/L (21-32); CHLORIDE 106 mmol/L (98-107); CREATININE 0.74 mg/dl (0.60-1.20); GLUCOSE 108 mg/dl (70-99); POTASSIUM 3.5 mmol/L (3.5-5.1); SODIUM 138 mmol/L (136-145)
[2016-12-28 15:07] LABS: ALB/GLOB RATIO 1.1 (0.9-2); ALKALINE PHOSPHATASE 81 U/L (45-117); AST/SGOT 16 U/L (15-37)
[2016-12-31 18:38] LABS: IGA SERUM 135 mg/dL (81-463); TIS TRANS IGA 1 U/mL (<4)
== END | disposition home or self-care (01) ==
LOC: C.LAB1850 12:53
PROVIDERS: ATTEND Registered Nurse
DX: R14.0 Abdominal distension (gaseous) (principal)

== ENCOUNTER → 2017-01-04 | Outpatient (CLI) | payer OTHER ==
--- NOTE | 2017-01-04 09:56 | DIAGNOSTIC IMAGING REPORT ---
ABDOMINAL ULTRASOUND, RIGHT UPPER QUADRANT HISTORY: Epigastric pain, nausea and bloating. COMPARISON: Right upper quadrant ultrasound April 01, [address] of the abdomen April 21, 2006. FINDINGS: Liver morphology is normal. No hepatic lesions are identified. There is no biliary ductal dilatation. The common bile duct measures 4 mm in caliber. A gallstone is noted within the gallbladder. There is no gallbladder wall thickening or pericholecystic fluid. The pancreas is within normal limits by sonography. There is no right hydronephrosis. Note is made of a 9 mm echogenic right renal lesion which was shown on exam of April 01, 2016. IMPRESSION: 1. Cholelithiasis. No gallbladder wall thickening. 2. 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 Electronically signed by: Han Clifford M.D. 01/04/2017 9:55 AM Dictated Date/Time: 01/04/2017 9:42 AM
== END | disposition home or self-care (01) ==
LOC: C.ULTR 09:06
PROVIDERS: ATTEND Registered Nurse
DX: K80.20 Calculus of gallbladder without cholecystitis without obstruction (principal); N28.9 Disorder of kidney and ureter, unspecified

== ENCOUNTER → 2017-01-08 | Outpatient (CLI) | payer OTHER ==
[2017-01-08 11:19] LABS: C-REACTIVE PROTEIN 3.59 mg/dl (0-0.29); CHOLESTEROL/HDL RATIO 4.4; THYROID STIMULATING HORMONE 0.824 uIu/ml (0.300-4.500)
== END | disposition home or self-care (01) ==
LOC: C.LABBC 08:56
PROVIDERS: ATTEND Nurse Practitioner Family
DX: E78.00 Pure hypercholesterolemia, unspecified (principal); E03.9 Hypothyroidism, unspecified; R79.82 Elevated C-reactive protein (CRP)

== ENCOUNTER 2017-01-28 21:07 | Emergency (ER) | payer OTHER ==
[~2017-01-28] VITALS: Ht 162.6 cm; Wt 75.2 kg
[~2017-01-28 21:07] MED LIST changes: -CEPH500C2 PO; -PRED50TA PO
[2017-01-28 21:15] VITALS: TEMP 36.9; Ht 162.6 cm; Wt 75.2 kg
[2017-01-28] MEDS ORDERED: LIDOCAINE HCL 2% VISC SOLN 20 ML UDC MT STA (21:31)
[2017-01-28] MEDS ORDERED: DEXAMETHASONE SOD INJ 10 MG/ML VIAL IV ONE (21:45)
[2017-01-28 22:21] LABS: BUN/CREATININE RATIO 20.4 (10-20); CALCIUM 8.4 mg/dl (8.5-10.1); CREATININE 0.75 mg/dl (0.60-1.20); POTASSIUM 3.8 mmol/L (3.5-5.1)
[2017-01-28 22:33] LABS: BASO % 0.8 %; BASO ABS # 0.05 K/uL (0-0.2); COMPLETE YES; EOS % 4.4 %; HEMATOCRIT 36.3 % (37-47); IG% 0.3 %; LYMPH % 32.7 %; LYMPH ABS # 2.14 K/uL (1.2-3.4); MEAN CELL VOLUME 85.8 fL (80-100); MEAN CORPUSCULAR HEMOGLOBIN 28.8 pg (25-34); MEAN CORPUSCULAR HGB CONC 33.6 g/dl (32-36); MEAN PLATELET VOLUME 10.2 fL (7.4-10.4); MONO % 8.2 %; NEUT % 53.6 %; PLATELET COUNT 240 K/uL (130-400); RED BLOOD COUNT 4.23 M/uL (4.2-5.4); WHITE BLOOD COUNT 6.55 K/uL (4.8-10.8)
[2017-01-28] MEDS ORDERED: CEFTRIAXONE SOD INJ 1 GM ADDVIAL IV STA (22:36)
[2017-01-28] MEDS ORDERED: PRED50TA PO (23:43)
[2017-01-28] MEDS ORDERED: CEPH500C2 PO (23:43)
[2017-01-28] MEDS ORDERED: CEPHALEXIN 500MG HOME PACK 1 EA BTL PO ONE (23:45)
[2017-01-28 23:53] VITALS: BP 171/94; PULSE 70; O2SAT 97
[2017-01-29 00:24] LABS: INFLUENZA A PCR Neg for Influ A (NEG); INFLUENZA B PCR Neg for Influ B (NEG)
--- NOTE | 2017-01-29 02:08 | EMERGENCY ROOM VISIT NOTE ---
ED Visit Note First contact with patient: 21:23 I have personally evaluated this patient examined her and reviewed the pertinent labs and data. I have discussed the case with Keri Joyce, the physician assistant men's lacrosse coach and agree with the plan. Please refer to the PA note. This patient has a sore throat her uvula appears mildly edematous she has no evidence of airway compromise. The patient had been given IV Decadron as well as IV Rocephin was resting very comfortably. She most likely has uvulitis. She has no evidence of any other allergic reaction. She has no hives. She has no stridor or drooling. She will be discharged home.
--- NOTE | 2017-01-29 03:29 | EMERGENCY ROOM VISIT NOTE ---
History First contact with patient: 21:23 Chief Complaint: SORETHROAT Stated Complaint: THROAT SWELLING, SORE History of Present Illness The patient is a 66 year old female who presents to the Emergency Room with complaints of sore throat, cough, congestion, enlarged glands. Patient states she had a chest x-ray for preop for her cholecystectomy next week. Patient denies chest pain, dyspnea, earache, runny nose, abdominal pain, vomiting, diarrhea. She is tolerate by mouth fluids and food. She states her uvula feels enlarged. No new foods soaps or detergents. Review of Systems See HPI for pertinent positives & negatives. A total of 10 systems reviewed and were otherwise negative. Past Medical/Surgical History Medical Problems: (1) Asthma (2) Hyperlipidemia (3) Hypothyroidism (4) Migraines Family History FH: heart disease FHx: cancer Social History Smoking Status: Current Every Day Smoker Alcohol Use: none Drug Use: none Marital Status: Housing Status: lives with family Occupation Status: retired Current/Historical Medications Scheduled Aspirin (Aspirin), 1 TAB PO QAM Atorvastatin (Lipitor), 10 MG PO HS Cephalexin Monohydrate (Keflex), 500 MG PO QID Cholecalciferol (Vitamin D3), 1 TAB PO QAM Cyanocobalamin (Vitamin B12), 1 TAB PO QAM Levothyroxine Sodium (Synthroid), 1 TAB PO QAM Nitroglycerin (Nitrostat), 0.4 MG UT PRN Pantoprazole (Protonix), 40 MG PO QAM Prednisone (Prednisone), 50 MG PO DAILY Ranitidine (Zantac), 150 MG PO HS Zolpidem Tartrate (Ambien), 5 MG PO HS Scheduled PRN Albuterol Sulfate (Proair Respiclick), 2 PUFF INH Q4 PRN for SOB/Wheezing Fluticasone Prop/Salmeterol (Advair Diskus 250/50 60 Dose), 1 PUFF INH BID PRN for Shortness of Breath Furosemide (Lasix), 20 MG PO UD PRN for EDEMA Allergies Coded Allergies: Bacitracin (Verified Allergy, Intermediate, redness, 01/28/17) Polymyxin B (Verified Allergy, Intermediate, redness, 01/28/17) Amoxicillin (Verified Allergy, Unknown, RASH, 01/28/17) Codeine (Verified Adverse Reaction, Unknown, n/v, 01/28/17) Morphine and Related (Verified Adverse Reaction, Unknown, N/V, 01/28/17) Moxifloxacin (Verified Adverse Reaction, Unknown, nausea, 01/28/17) Oxycodone (Verified Adverse Reaction, Unknown, NAUSEA, 01/28/17) Statins (Verified Adverse Reaction, Unknown, muscle weakness, 01/28/17) Tramadol (Verified Adverse Reaction, Unknown, nausea, 01/28/17) Physical Exam Vital Signs Date Time Temp Pulse Resp B/P (MAP) Pulse Ox O2 Delivery O2 Flow Rate FiO2 01/28/17 23:53 70 18 171/94 97 01/28/17 23:30 70 18 171/94 97 Room Air 01/28/17 21:51 Room Air 01/28/17 21:15 36.9 77 18 183/86 98 Room Air Physical Exam VITALS: Vitals are noted on the nurse's note and reviewed by myself. Vital signs hypertensive GENERAL: Pleasant female speaking in full sentences without stridor, in no acute distress, nondiaphoretic, well-developed well-nourished. SKIN: The skin was without rashes, erythema, edema, or bruising. There is no tenting of the skin. Capillary reflex less than 2 seconds. HEAD: Normocephalic atraumatic. EARS: External auditory canals clear, tympanic membranes pearly krueger without erythema or effusion bilaterally. EYES: Pupils equal round and reactive to light and accommodation. Conjunctivae without injection, sclerae without icterus. Extraocular movements intact. NOSE: Patent, turbinates without inflammation or discharge. No sinus tenderness. MOUTH: Mucous membranes moist. Pharynx with erythema without exudate. Uvula midline and mildly edematous and erythematous. Airway patent. Tongue does not deviate. NECK: Supple without nuchal rigidity. Submandibular lymphadenopathy. No thyromegaly. Cervical spine is nontender. No JVD. No meningeal signs HEART: Regular rate and rhythm LUNGS: Clear to auscultation bilaterally without wheezes, rales or rhonchi. No dullness to percussion. No retractions or accessory muscle use. ABDOMEN: Positive bowel sounds x 4. Normal tympanic percussion. Soft, nontender, without masses or organomegaly. Ramires sign negative. No guarding or rebound tenderness. MUSCULOSKELETAL: No muscle atrophy, erythema, or edema noted. NEURO: Patient was alert and oriented to person place and time. Normal sensation to light and sharp touch. No focal neurological deficits. Medical Decision & Procedures Laboratory Results 01/28/17 22:20 Red Blood Count 4.23, Mean Corpuscular Volume 85.8, Mean Corpuscular Hemoglobin 28.8, Mean Corpuscular Hemoglobin Concent 33.6, Mean Platelet Volume 10.2, Neutrophils (%) (Auto) 53.6, Lymphocytes (%) (Auto) 32.7, Monocytes (%) (Auto) 8.2, Eosinophils (%) (Auto) 4.4, Basophils (%) (Auto) 0.8, Neutrophils # (Auto) 3.51, Lymphocytes # (Auto) 2.14, Monocytes # (Auto) 0.54, Eosinophils # (Auto) 0.29, Basophils # (Auto) 0.05 01/28/17 21:45 Test 01/28/17 21:45 01/28/17 21:55 01/28/17 22:20 Anion Gap 6.0 mmol/L (3-11) Est Creatinine Clear Calc Drug Dose 73.3 ml/min Estimated GFR () 96.3 Estimated GFR (Non- 83.1 BUN/Creatinine Ratio 20.4 (10-20) Calcium Level 8.4 mg/dl (8.5-10.1) Influenza Type A (RT-PCR) Neg for Influ A (NEG) Influenza Type A Antigen Neg for Influ A (NEG) Influenza Type B Antigen Neg for Influ B (NEG) Influenza Type B (RT-PCR) Neg for Influ B (NEG) White Blood Count 6.55 K/uL (4.8-10.8) Red Blood Count 4.23 M/uL (4.2-5.4) Hemoglobin 12.2 g/dL (12.0-16.0) Hematocrit 36.3 % (37-47) Mean Corpuscular Volume 85.8 fL (80-100) Mean Corpuscular Hemoglobin 28.8 pg (25-34) Mean Corpuscular Hemoglobin Concent 33.6 g/dl (32-36) Platelet Count 240 K/uL (130-400) Mean Platelet Volume 10.2 fL (7.4-10.4) Neutrophils (%) (Auto) 53.6 % Lymphocytes (%) (Auto) 32.7 % Monocytes (%) (Auto) 8.2 % Eosinophils (%) (Auto) 4.4 % Basophils (%) (Auto) 0.8 % Neutrophils # (Auto) 3.51 K/uL (1.4-6.5) Lymphocytes # (Auto) 2.14 K/uL (1.2-3.4) Monocytes # (Auto) 0.54 K/uL (0.11-0.59) Eosinophils # (Auto) 0.29 K/uL (0-0.5) Basophils # (Auto) 0.05 K/uL (0-0.2) RDW Standard Deviation 46.2 fL (36.4-46.3) RDW Coefficient of Variation 14.9 % (11.5-14.5) Immature Granulocyte % (Auto) 0.3 % Immature Granulocyte # (Auto) 0.02 K/uL (0.00-0.02) Medications Administered Medications (Trade) Dose Ordered Sig/Ashley Route Start Time Stop Time Status Last Admin Dose Admin Dexamethasone Sodium Phosphate (Decadron Inj) 10 mg NOW ONCE IV 01/28/17 21:45 01/28/17 21:46 DC 01/28/17 21:51 10 MG Lidocaine HCl (Viscous Lidocaine 2% Soln) 10 ml NOW STAT MT 01/28/17 21:31 01/28/17 21:37 DC 01/28/17 21:51 10 ML Ceftriaxone Sodium (Rocephin Inj) 1 gm NOW STAT IV 01/28/17 22:36 01/28/17 22:38 DC 01/28/17 22:46 1 GM Cephalexin Monohydrate (Keflex 500MG Home Pack) 1 homepack NOW ONCE PO 01/28/17 23:45 01/28/17 23:46 DC 01/28/17 23:43 1 HOMEPACK ED Course Prior records/ancillary studies reviewed. Triage Nursing notes reviewed. Additional history obtained from family. The patient's history was concerning for a sore throat. Differential diagnosis: Etiologies such as uvulitis, viral syndrome, tonsillitis, streptococcal pharyngitis, mononucleosis, peritonsillar abscess, retropharyngeal abscess, otitis, pneumonia, influenza, as well as others were entertained. ER treatment provided: Steroids, Rocephin, Keflex, viscous lidocaine On reassessment the patient felt better. Diagnostics interpreted by me: The labs revealed negative flu, negative strep, no worrisome leukocytosis Imaging studies: Chest x-ray from earlier today was negative for pneumonia per radiology and chart review This appears to be consistent with uvulitis. Patient out much better after being medicated as above. No signs of airway compromise. She is advised take medications as directed and to follow-up family care in a few days or here in the ER sooner for difficulty swallowing, high fevers, neck status, worsening signs or symptoms or as needed.. By the evaluation outlined above emergent etiologies such as peritonsillar abscess, retropharyngeal abscess, otitis, pneumonia, meningitis, urinary tract infection, sepsis, bacteremia, as well as others were deemed relatively unlikely. The pt informed about the findings as listed above. All questions were answered and pleased with the treatment. Return instructions were outlined and the patient was discharged in stable condition. Outpatient prescription management: Keflex, prednisone Referral: The patient was referred back to their primary care physician for follow-up in 2 to 3 days for a recheck of the current condition. Case reviewed with my attending. Medical Decision As above Impression Primary Impression: Uvulitis Departure Information Dispostion Home / Self-Care Condition GOOD Prescriptions Cephalexin Monohydrate (KEFLEX) 500 Mg Cap 500 MG PO QID for 9 Days, #36 CAP Prov: Merari Joyce .RICO 01/28/17 Prednisone (Prednisone) 50 Mg Tab 50 MG PO DAILY for 4 Days, #4 TAB Prov: Merari Joyce PA-C 01/28/17 Forms HOME CARE DOCUMENTATION FORM, IMPORTANT VISIT INFORMATION Patient Instructions My [facility], ED Uvulitis Additional Instructions Cephalexin(Keflex) 500mg: Take one pill four times daily for 10 days for your infection. All antibiotics can cause diarrhea. If this occurs and you feel worse or it does not resolve in 1-2 days follow up with your doctor or return to the Emergency Department as this could be signs of serious underlying problems. Any medication can cause an allergic reaction, stop the pills immediately and return to the ER for rash, hives, breathing difficulties, or swelling. Prednisone 50m tab daily x 4 days. Take this in the morning. Acetaminophen(Tylenol) may be used for fever or pain. Use 1000mg every six hours as needed. Avoid using more than 3000mg in a 24 hour period. (AND/OR) Ibuprofen(Motrin, Advil) may be used for fever or pain. Use 600mg every six hours as needed. Take with food. Avoid using more than 2400mg in a 24 hour period. Do not use 2400mg per day for more than three consecutive days without physician direction. Prolonged inappropriate use can lead to stomach upset or ulcers. Afrin nasal spray: 2-3 sprays to each nostril twice daily as needed for congestion. Do not use for more than 3-4 days because it can lead to worsening rebound congestion. Pseudoephedrine(Sudaphed): 30-60mg every 6 hours as needed for nasal congestion. Do not take this with other stimulant products or supplements. Rest and drink plenty of fluids. Controlling your fever with Tylenol and Ibuprofen as above will make you feel better. Wash your hands after nose blowing, sneezing, or coughing. Most germs are spread through contact, therefore improper hygiene may result in your close contacts and loved ones becoming ill just like you. Continue current medications. Return to the ER for severe headache, neck stiffness, chest pain, difficulty breathing, fevers, vomiting, worsening of your condition, or as needed. Follow up with your primary physician this week for a recheck of your current condition.
== END 2017-01-28 23:54 | disposition home or self-care (01) ==
LOC: C.EDB 21:10
DX: K12.2 Cellulitis and abscess of mouth (principal); J45.909 Unspecified asthma, uncomplicated; E03.9 Hypothyroidism, unspecified; E78.5 Hyperlipidemia, unspecified; Z79.82 Long term (current) use of aspirin; Z79.899 Other long term (current) drug therapy

== ENCOUNTER → 2017-02-03 | Outpatient (CLI) | payer OTHER ==
[~2017-02-03] MED LIST changes: -ALBU1AER9 INH; +ATOR10TA82 PO; -ATOR10TA88 PO; +CEPH500C2 PO; -COEN100C7 PO; +HYDR-5688 PO; +OPTIRAY 320 IV PRN
--- NOTE | 2017-02-03 13:43 | DIAGNOSTIC IMAGING REPORT ---
CT ABD WITH IV AND ORAL CONT (CT) CLINICAL HISTORY: DIAPHRAGMATIC HERNIA COMPARISON STUDY: April 2006 TECHNIQUE: Following the IV administration of 119 mL of Optiray-320, CT scan of the abdomen and pelvis was performed from the lung bases to the proximal femurs. Images are reviewed in the axial, sagittal, and coronal planes. IV contrast was administered without complication. A dose lowering technique was utilized adhering to the principles of ALARA. CT DOSE: 396.86 mGycm FINDINGS: Lower chest: The heart is normal in size and configuration, without pericardial effusion. The lung bases and pleural spaces are clear. Liver: There is a 3 mm hypodensity within the right lobe inferiorly abutting the capsule. There is a 4 mm hypodensity within the left lobe. These are too small to characterize but likely represent tiny cysts Gallbladder: Unremarkable. Spleen: Normal in size and attenuation. Pancreas: Unremarkable. Adrenal glands: Unremarkable. Kidneys: There is symmetric renal cortical enhancement. The kidneys are normal in size without hydronephrosis. Bowel: The small bowel and colon are normal in course and caliber. Peritoneum: There is no intraperitoneal free air or upper abdominal ascites. Vasculature: The abdominal aorta is normal in course and caliber. Adenopathy: None. Skeletal structures: There are small bilateral fat-containing Bochdalek hernias left larger than right. IMPRESSION: 1. Small bilateral fat-containing Bochdalek hernias left larger than right 2. No acute findings. Electronically signed by: Arben Jang M.D. 02/03/2017 1:42 PM Dictated Date/Time: 02/03/2017 1:37 PM
== END | disposition home or self-care (01) ==
LOC: C.CTS 12:52
PROVIDERS: ATTEND Surgery
DX: K44.9 Diaphragmatic hernia without obstruction or gangrene (principal)

== ENCOUNTER → 2017-03-07 | Outpatient (CLI) | payer OTHER ==
[~2017-03-07] MED LIST changes: -CEPH500C2 PO; -OPTIRAY 320 IV PRN; -PANT40TA PO
--- NOTE | 2017-03-08 14:31 | MAMMOGRAPHY REPORT ---
BILATERAL DIGITAL SCREENING MAMMOGRAM TOMOSYNTHESIS WITH CAD: 03/07/2017 CLINICAL HISTORY: Routine screening. Patient has no complaints. TECHNIQUE: Breast tomosynthesis in addition to standard 2D mammography was performed. Current study was also evaluated with a Computer Aided Detection (CAD) system. COMPARISON: Comparison is made to exams dated: 03/04/2016 mammogram, 03/03/2015 mammogram, 08/31/2013 mammogram, 08/29/2012 mammogram, 03/17/2012 mammogram, and 03/17/2012 ultrasound - [facility]. BREAST COMPOSITION: There are scattered areas of fibroglandular density in both breasts. FINDINGS: There are benign-appearing calcifications in the right breast. No new suspicious mass, ar chitectural distortion or cluster of microcalcifications is seen. IMPRESSION: ACR BI-RADS CATEGORY 1: NEGATIVE There is no mammographic evidence of malignancy. A 1 year screening mammogram is recommended. The pa tient will receive written notification of the results. Approximately 10% of breast cancers are not detected with mammography. A negative mammographic report should not delay biopsy if a clinically suggestive mass is present. Gela Persaud M.D. ay/:03/07/2017 15:20:30 Management Retail Intern: Jama Mckeon, M, [facility] letter sent: Normal 1/2 BI-RADS Code: ACR BI-RADS Category 1: Negative
== END | disposition home or self-care (01) ==
LOC: C.MAMM 10:58
PROVIDERS: ATTEND Nurse Practitioner Family
DX: Z12.31 Encounter for screening mammogram for malignant neoplasm of breast (principal)

== ENCOUNTER → 2017-03-16 | Outpatient (CLI) | payer OTHER ==
--- NOTE | 2017-03-16 12:01 | DIAGNOSTIC IMAGING REPORT ---
L-SPINE MIN 4 VIEWS ROUTINE CLINICAL HISTORY: 66 years-old Female presenting with M54.42 Low back pain with left-sided [id number]. TECHNIQUE: Frontal, bilateral oblique, lateral, and coned in lateral views of the lumbar spine were obtained. COMPARISON: MR lumbar spine from 2009. FINDINGS: No scoliosis. Normal lumbar lordosis. Vertebral bodies maintain normal height. 4 to 5 mm of anterolisthesis of L4 on L5 suggested. Intervertebral disc spaces preserved. Mild degenerative changes evidenced by osteophytosis at L1-2 and L2-3. Facet arthropathy suspected in the lower lumbar spine. This may results in osseous neural foraminal narrowing at L5-S1 and L4-5 to a lesser degree. No radiographic evidence of a compression deformity or subluxation. Cholecystectomy clips. Nonobstructive bowel gas pattern. Osteopenia may be present. Atherosclerosis. IMPRESSION: Mild degenerative changes with possible osseous neural foraminal narrowing at L5-S1 and L4-5 to a lesser degree secondary to facet arthropathy. Electronically signed by: Gene Nash M.D. 03/16/2017 11:59 AM Dictated Date/Time: 03/16/2017 11:57 AM
== END | disposition home or self-care (01) ==
LOC: C.LAB1850 11:33
PROVIDERS: ATTEND Neuromusculoskeletal Medicine & OMM
DX: M54.42 Lumbago with sciatica, left side (principal)

== ENCOUNTER 2017-03-25 20:02 | Emergency (ER) | payer OTHER ==
[~2017-03-25] VITALS: Ht 162.6 cm; Wt 76.9 kg
[2017-03-25 20:05] VITALS: TEMP 36.5; Ht 162.6 cm; Wt 76.9 kg
--- NOTE | 2017-03-25 20:30 | EMERGENCY ROOM VISIT NOTE ---
History Report prepared by [place]: Tiffany Aguilar Under the Supervision of: Dr. Abdirahman Lacey M.D. First contact with patient: 20:09 Chief Complaint: THROAT PAIN/INJURY Stated Complaint: SORE THROAT History of Present Illness The patient is a 66 year old female who presents to the Emergency Room with complaints of persistent sore throat starting 2 months ago. The patient reports being on multiple antibiotics and prednisone to no relief. She is currently not on antibiotics. She stopped her prednisone yesterday. She has had a cough which is productive. She is coughing up a thick clear sputum. She reports that it is hard for her to eat and she cannot taste anything. She denies any fever or chills. She does smoke. She had a cholecystectomy last month. She was tested for strep at that time. She has a history of bronchitis. She denies any history of pneumonia. The patient was on Keflex 2 months ago for uvulitis. Source of History: patient Onset: 2 months ago Position: throat Quality: other (sore) Timing: other (persistent) Associated Symptoms: + cough, No fevers, No chills Review of Systems All systems have been listed, reviewed, and are negative other than those previously mentioned. Please see Additional Medical History Sheet. Past Medical & Surgical Medical Problems: (1) Asthma (2) Hyperlipidemia (3) Hypothyroidism (4) Migraines Surgical Problems: (1) S/P cholecystectomy Family History Cancer Lung disease Social History Smoking Status: Current Every Day Smoker Alcohol Use: none Drug Use: none Marital Status: Housing Status: lives with family Occupation Status: retired Current/Historical Medications Scheduled Aspirin (Aspirin), 1 TAB PO QAM Atorvastatin (Lipitor), 10 MG PO HS Cyanocobalamin (Vitamin B12), 1 TAB PO QAM Fluconazole (Diflucan), 100 MG PO QD Gabapentin (Neurontin), 300 MG PO HS Levothyroxine Sodium (Synthroid), 1 TAB PO QAM Prednisone (Prednisone), 20 MG PO DIRECTED Zolpidem Tartrate (Ambien), 5 MG PO HS Scheduled PRN Albuterol Sulfate (Proair Respiclick), 2 PUFF INH Q4 PRN for SOB/Wheezing Fluticasone Prop/Salmeterol (Advair Diskus 250/50 60 Dose), 1 PUFF INH BID PRN for Shortness of Breath Furosemide (Lasix), 20 MG PO UD PRN for EDEMA Allergies Coded Allergies: Bacitracin (Verified Allergy, Intermediate, redness, 03/25/17) Polymyxin B (Verified Allergy, Intermediate, redness, 03/25/17) Amoxicillin (Verified Allergy, Unknown, RASH, 03/25/17) Codeine (Verified Adverse Reaction, Unknown, n/v, 03/25/17) Morphine and Related (Verified Adverse Reaction, Unknown, N/V, 03/25/17) Moxifloxacin (Verified Adverse Reaction, Unknown, nausea, 03/25/17) Oxycodone (Verified Adverse Reaction, Unknown, NAUSEA, 03/25/17) Statins (Verified Adverse Reaction, Unknown, muscle weakness, 03/25/17) Tramadol (Verified Adverse Reaction, Unknown, nausea, 03/25/17) Physical Exam Vital Signs Date Time Temp Pulse Resp B/P (MAP) Pulse Ox O2 Delivery O2 Flow Rate FiO2 03/25/17 23:25 73 18 174/98 98 03/25/17 21:30 79 20 146/84 96 Room Air 03/25/17 20:10 96 Room Air 03/25/17 20:05 36.5 96 16 149/91 97 Room Air Physical Exam GENERAL: Patient awake, alert, oriented x 3. Patient follows commands. Patient does not appear toxic. Patient is adequately hydrated and well- nourished. SKIN: No erythema, pallor, cyanosis or rash HEENT: Normal head, pupils equal, reactive to light and accommodation. Ears normal. Slight yellowish tinge to the tongue, no significant swelling. No significant swelling of the posterior pharynx or uvula. Neck: Without adenopathy, no neck vein distention. LUNGS: Wheezes bilaterally. HEART: No murmurs. No gallops. No rubs ABDOMEN: No masses, no rebound, no hepatomegaly or splenomegaly. EXTREMITIES: No signs of trauma. No pedal or pretibial edema. No calf or thigh tenderness. NEUROLOGIC: Cranial nerves II-XII within normal limits. No gross motor sensory function deficits. Medical Decision & Procedures ER Provider Diagnostic Interpretation: X ray results are stated below per my interpretation and the radiologist's interpretation. CHEST 2 VIEWS ROUTINE HISTORY: 66 years-old Female cough acute cough COMPARISON: Chest radiographs 02/22/2017 TECHNIQUE: PA and lateral views of the chest FINDINGS: Cardiomediastinal and hilar silhouettes are within normal limits. Atherosclerosis of the aorta. Opacity of the left lung base correlating with Bochdalek hernia redemonstrated. No pneumothorax, pleural effusion or focal airspace consolidation. Bones of the chest are grossly intact. Mild dextroscoliosis of the thoracic spine. Prior cholecystectomy. IMPRESSION: No acute cardiopulmonary process. The above report was generated using voice recognition software. It may contain grammatical, syntax or spelling errors. Electronically signed by: Gil Torres M.D. 03/25/2017 9:00 PM Dictated Date/Time: 03/25/2017 8:58 PM Laboratory Results 03/25/17 20:25 Red Blood Count 4.82, Mean Corpuscular Volume 88.6, Mean Corpuscular Hemoglobin 30.1, Mean Corpuscular Hemoglobin Concent 34.0, Mean Platelet Volume 10.0 03/25/17 20:25 Test 03/25/17 20:25 White Blood Count 15.95 K/uL (4.8-10.8) Red Blood Count 4.82 M/uL (4.2-5.4) Hemoglobin 14.5 g/dL (12.0-16.0) Hematocrit 42.7 % (37-47) Mean Corpuscular Volume 88.6 fL (80-100) Mean Corpuscular Hemoglobin 30.1 pg (25-34) Mean Corpuscular Hemoglobin Concent 34.0 g/dl (32-36) Platelet Count 319 K/uL (130-400) Mean Platelet Volume 10.0 fL (7.4-10.4) RDW Standard Deviation 51.1 fL (36.4-46.3) RDW Coefficient of Variation 15.8 % (11.5-14.5) Neutrophils % (Manual) 58.0 % Lymphocytes % (Manual) 33.0 % Monocytes % (Manual) 6.3 % Eosinophils % (Manual) 1.8 % Basophils % (Manual) 0.9 % Neutrophils # (Manual) 9.25 K/uL (1.4-6.5) Total Absolute Neutrophils 9.25 K/uL (1.4-6.5) Lymphocytes # (Manual) 5.26 K/uL (1.2-3.4) Total Absolute Lymphocytes 5.26 K/uL (1.2-3.4) Monocytes # (Manual) 1.00 K/uL (0.11-0.59) Eosinophils # (Manual) 0.29 K/uL (0-0.5) Basophils # (Manual) 0.14 K/uL (0-0.2) Red Blood Cell Morphology Unremarkable Anion Gap 5.0 mmol/L (3-11) Est Creatinine Clear Calc Drug Dose 66.9 ml/min Estimated GFR () 85.2 Estimated GFR (Non- 73.5 BUN/Creatinine Ratio 13.7 (10-20) Calcium Level 7.8 mg/dl (8.5-10.1) Laboratory results as stated above per my review. Medications Administered Medications (Trade) Dose Ordered Sig/Ashley Route Start Time Stop Time Status Last Admin Dose Admin Fluconazole (Diflucan Tab) 200 mg ONE ONCE PO 03/25/17 22:30 03/25/17 22:32 DC 03/25/17 22:47 200 MG ED Course 2010: Past medical records reviewed. The patient was evaluated in room C4. A complete history and physical examination was performed. 2230: Fluconazole 200 mg PO. 2245: Upon reevaluation, the patient was resting comfortably. I discussed today' s findings with her. She verbalized agreement of the treatment plan. She was discharged home. Medical Decision Nurses notes reviewed. Medical history sheet reviewed. Differential diagnosis includes but is not limited to: acute strep pharyngitis, thrush, viral causes of pharyngitis, diphtheria. Multiple labs and strep test were obtained. Please see above. The patient's white count is mildly elevated most likely secondary to her recent use of steroids. Strep test was negative. Chest x-ray is unremarkable. Examination of the patient reveals slight yellow tint to her tongue but no signs of other active infections. She does not have cervical adenopathy. The patient has been on steroids and antibiotics. The patient believes that she may have thrush and I agree. The patient was given 200 mg of Diflucan here and will continue 100 mg once a day for the next 7 days. The patient was encouraged to follow-up with her family physician. Medication Reconcilliation Current Medication List: was personally reviewed by me Blood Pressure Screening Patient's blood pressure: Elevated blood pressure Blood pressure disposition: Referred to PCP Impression Primary Impression: Thrush Scribe Attestation The scribe's documentation has been prepared under my direction and personally reviewed by me in its entirety. I confirm that the note above accurately reflects all work, treatment, procedures, and medical decision making performed by me. Departure Information Dispostion Home / Self-Care Prescriptions Fluconazole (DIFLUCAN) 100 Mg Tab 100 MG PO QD for 7 Days, #7 TAB Prov: Abdirahman Lacey M.D. 03/25/17 Referrals Alec Lua III, CRNP (PCP) Patient Instructions My [facility], [facility] Oral Additional Instructions 100 mg of Diflucan daily for the next 7 days. Follow-up with your family physician in 7-10 days. Your blood pressure needs to be rechecked at that time.
[2017-03-25 20:41] LABS: HEMATOCRIT 42.7 % (37-47); MEAN CELL VOLUME 88.6 fL (80-100); MEAN CORPUSCULAR HEMOGLOBIN 30.1 pg (25-34); PLATELET COUNT 319 K/uL (130-400); RED BLOOD COUNT 4.82 M/uL (4.2-5.4); WHITE BLOOD COUNT 15.95 K/uL (4.8-10.8)
--- NOTE | 2017-03-25 21:01 | DIAGNOSTIC IMAGING REPORT ---
CHEST 2 VIEWS ROUTINE HISTORY: 66 years-old Female cough acute cough COMPARISON: Chest radiographs 02/22/2017 TECHNIQUE: PA and lateral views of the chest FINDINGS: Cardiomediastinal and hilar silhouettes are within normal limits. Atherosclerosis of the aorta. Opacity of the left lung base correlating with Bochdalek hernia redemonstrated. No pneumothorax, pleural effusion or focal airspace consolidation. Bones of the chest are grossly intact. Mild dextroscoliosis of the thoracic spine. Prior cholecystectomy. IMPRESSION: No acute cardiopulmonary process. The above report was generated using voice recognition software. It may contain grammatical, syntax or spelling errors. Electronically signed by: Gil Torres M.D. 03/25/2017 9:00 PM Dictated Date/Time: 03/25/2017 8:58 PM
[2017-03-25 21:06] LABS: BUN/CREATININE RATIO 13.7 (10-20); CALCIUM 7.8 mg/dl (8.5-10.1); CREATININE 0.83 mg/dl (0.60-1.20)
[2017-03-25] MEDS ORDERED: GABA-113 PO (21:20)
[2017-03-25] MEDS ORDERED: PRED20TA PO (21:20)
[2017-03-25 22:17] LABS: BASO ABS # 0.14 K/uL (0-0.2); BASOPHIL % 0.9 %; EOSINOPHIL % 1.8 %; LYMPH ABS # 5.26 K/uL (1.2-3.4)
[2017-03-25 22:18] LABS: COMPLETE YES
[2017-03-25] MEDS ORDERED: FLUCONAZOLE 100 MG TAB PO ONE (22:30)
[2017-03-25] MEDS ORDERED: FLUC100T4 PO (23:06)
[2017-03-25 23:25] VITALS: BP 174/98; PULSE 73; O2SAT 98
== END 2017-03-25 23:26 | disposition home or self-care (01) ==
LOC: C.EDB 20:03 → C.EDC 23:26
DX: B37.0 Candidal stomatitis (principal); J45.909 Unspecified asthma, uncomplicated; E78.5 Hyperlipidemia, unspecified; E03.9 Hypothyroidism, unspecified; G43.909 Migraine, unspecified, not intractable, without status migrainosus; Z80.9 Family history of malignant neoplasm, unspecified; Z83.6 Family history of other diseases of the respiratory system; F17.210 Nicotine dependence, cigarettes, uncomplicated; Z79.82 Long term (current) use of aspirin; Z79.52 Long term (current) use of systemic steroids; Z79.899 Other long term (current) drug therapy

== ENCOUNTER → 2017-04-21 | Outpatient (CLI) | payer OTHER ==
[~2017-04-21] MED LIST changes: +CHOL100027 PO; -CHOL1TAB46 PO; +GABA-113 PO; -HYDR-5688 PO; +IPRA1AER2 INH; -NTRGSL/4 UT; +PRED20TA PO; -ZNTT/150 PO
[2017-04-21 11:28] LABS: BASO % 0.6 %; BASO ABS # 0.05 K/uL (0-0.2); EOS % 2.2 %; EOS ABS # 0.18 K/uL (0-0.5); HEMATOCRIT 41.2 % (37-47); HEMOGLOBIN 13.7 g/dL (12.0-16.0); IG# 0.01 K/uL (0.00-0.02); LYMPH ABS # 2.24 K/uL (1.2-3.4); MEAN CELL VOLUME 88.6 fL (80-100); MEAN CORPUSCULAR HEMOGLOBIN 29.5 pg (25-34); MEAN CORPUSCULAR HGB CONC 33.3 g/dl (32-36); MEAN PLATELET VOLUME 10.4 fL (7.4-10.4); MONO % 6.5 %; MONO ABS # 0.54 K/uL (0.11-0.59); NEUT % 63.6 %; NEUT ABS # 5.27 K/uL (1.4-6.5); PLATELET COUNT 277 K/uL (130-400); RED CELL DISTRIBUTION WIDTH CV 15.4 % (11.5-14.5); RED CELL DISTRIBUTION WIDTH SD 49.3 fL (36.4-46.3); WHITE BLOOD COUNT 8.29 K/uL (4.8-10.8)
[2017-04-21 11:54] LABS: T3 FREE 2.9 pg/ml (2.30-4.20)
[2017-04-21 15:34] LABS: ALBUMIN 3.1 gm/dl (3.4-5.0); BLOOD UREA NITROGEN 8 mg/dl (7-18); CALCIUM 8.2 mg/dl (8.5-10.1); CARBON DIOXIDE 27 mmol/L (21-32); CREATININE 0.74 mg/dl (0.60-1.20); GLUCOSE 102 mg/dl (70-99); POTASSIUM 3.1 mmol/L (3.5-5.1); SODIUM 139 mmol/L (136-145)
[2017-04-21 15:54] LABS: ALKALINE PHOSPHATASE 70 U/L (45-117); ALT/SGPT 23 U/L (12-78); AST/SGOT 16 U/L (15-37); TOTAL PROTEIN 6.5 gm/dl (6.4-8.2)
--- NOTE | 2017-04-25 14:13 | CODING QUERY MEDICAL NECESSITY ---
CQSUPPORTING DIAGNOSIS NEEDED A supporting diagnosis is required for the test/procedure performed on this patient in order for us to be reimbursed by the patient's insurance. Please provide a supporting diagnosis for the following test/procedure listed below next to the test name along with your signature. *If there is no additional diagnosis for this patient that would support the following test/procedure please document that below next to the test/procedure. Test(s)/Procedure(s) that require a supporting diagnosis: DOS 04/21/17 VITAMIN D TEST VITAMIN B12 TET FOLIC ACID TEST SERUM IRON STUDIES Provider Signature: Date: Thank you Maren Meeks Health Information Management Once completed, please kindly fax back to [phone] For questions please call [phone]
== END | disposition home or self-care (01) ==
LOC: C.LAB1850 10:30
PROVIDERS: ATTEND Nurse Practitioner Family
DX: R53.83 Other fatigue (principal)

== ENCOUNTER → 2017-06-09 | Outpatient (CLI) | payer OTHER ==
[~2017-06-09] MED LIST changes: -CHOL100027 PO; -IPRA1AER2 INH; +OPTIRAY 320 IV PRN
[2017-06-09 09:52] LABS: ALBUMIN 3.4 gm/dl (3.4-5.0); ALT/SGPT 27 U/L (12-78); BLOOD UREA NITROGEN 14 mg/dl (7-18); CALCIUM 8.7 mg/dl (8.5-10.1); CARBON DIOXIDE 29 mmol/L (21-32); CREATININE 0.72 mg/dl (0.60-1.20); GLUCOSE 82 mg/dl (70-99); POTASSIUM 4.3 mmol/L (3.5-5.1); SODIUM 140 mmol/L (136-145)
[2017-06-09 10:00] LABS: BASO % 0.7 %; BASO ABS # 0.05 K/uL (0-0.2); EOS % 6.8 %; EOS ABS # 0.49 K/uL (0-0.5); HEMATOCRIT 43.7 % (37-47); HEMOGLOBIN 14.9 g/dL (12.0-16.0); IG# 0.01 K/uL (0.00-0.02); MEAN CELL VOLUME 87.9 fL (80-100); MEAN CORPUSCULAR HGB CONC 34.1 g/dl (32-36); MEAN PLATELET VOLUME 10.4 fL (7.4-10.4); MONO % 6.3 %; MONO ABS # 0.45 K/uL (0.11-0.59); NEUT % 54.1 %; NEUT ABS # 3.89 K/uL (1.4-6.5); PLATELET COUNT 273 K/uL (130-400); RED CELL DISTRIBUTION WIDTH CV 14.5 % (11.5-14.5); RED CELL DISTRIBUTION WIDTH SD 46.8 fL (36.4-46.3); WHITE BLOOD COUNT 7.19 K/uL (4.8-10.8)
[2017-06-09 10:01] LABS: ALKALINE PHOSPHATASE 73 U/L (45-117); AST/SGOT 20 U/L (15-37); TOTAL PROTEIN 6.7 gm/dl (6.4-8.2)
[2017-06-09 10:08] LABS: PTT PATIENT 25.3 SECONDS (21.0-31.0)
--- NOTE | 2017-06-09 10:26 | DIAGNOSTIC IMAGING REPORT ---
(CHEST) THORAX WITH CT DOSE: 296.44 mGycm HISTORY: Dyspnea J45.909 Asthma TECHNIQUE: Multiaxial CT images of the chest were performed following the intravenous administration of contrast. A dose lowering technique was utilized adhering to the principles of ALARA. COMPARISON: 08/04/2015 FINDINGS: Macro nodularity throughout both hemithoraces is stable. Dimensions of all nodules location and configuration are unaltered. No new or interval finding. No significant mediastinal or hilar adenopathy. IMPRESSION: Stable pulmonary micronodularity. No new or interval finding. Routine surveillance is suggested. The above report was generated using voice recognition software. It may contain grammatical, syntax or spelling errors. Electronically signed by: Alfredo Warner M.D. 06/09/2017 10:24 AM Dictated Date/Time: 06/09/2017 10:15 AM
== END | disposition home or self-care (01) ==
LOC: C.CTS 08:54
PROVIDERS: ATTEND Internal Medicine Pulmonary Disease
DX: R91.8 Other nonspecific abnormal finding of lung field (principal)

== ENCOUNTER 2017-07-04 07:23 | Day surgery (SDC) | payer OTHER ==
[2017-07-04] VITALS (7 sets, daily range): BP systolic 137–161; BP diastolic 72–98; PULSE 69–78; TEMP 36.1–36.6; O2SAT 92–98; Ht 162.6 cm; Wt 74.0 kg
[~2017-07-04] VITALS: Ht 162.6 cm; Wt 74.0 kg
[~2017-07-04 07:23] MED LIST changes: -OPTIRAY 320 IV PRN
--- NOTE | 2017-07-04 08:00 | History & Physical Bridge Note ---
H&P Re-Evaluation Bridge Note: I have examined the patient, reviewed the History & Physical and in the interval since the performance of the History & Physical I have noted the following changes of clinical significance: No changes noted
--- NOTE | 2017-07-04 08:01 | Pre Sedation Assessment ---
Pre Sedation Assessment General Date of Sedation: Jul 04, 2017. Pre-Sedation Airway Assessment Smoking Status: Current Every Day Smoker Mallampati Classification: Class II ASA Classification: Class II Procedure Planning Contraindications for Sedation: None Current Medications Reviewed: Yes Notes The planned sedation has been discussed with the patient. Informed Consent was obtained. I have identified the patient, determined the appropriateness of sedation and have assessed the patient immediately prior to the procedure. All medicine(s) and interventions are by my order.
[2017-07-04] MEDS ORDERED: IPRA1AER2 INH (08:40)
[2017-07-04] MEDS ORDERED: ATOR10TA82 PO (08:41)
--- NOTE | 2017-07-04 08:56 | HISTORY & PHYSICAL EXAMINATION ---
DATE OF ADMISSION: 07/04/2017 PROCEDURE: Fiberoptic bronchoscopy with and without transbronchial biopsy. HISTORY OF PRESENT ILLNESS: A 66-year-old white female last seen in the clinic by myself on 05/26/2017 as per referral by her primary care provider Alec Lua III. The patient is a chronic smoker with a persistent cough and has been refractory to outpatient therapy. Sputum she brings up is clear. The patient had a cough since February. She was seen in the ER on several occasions, the last being on 03/25/[address] Lacey. The patient has been on multiple antibiotics including prednisone without relief and patient was tapered off her prednisone prior to my seeing her. The sputum is clear without hemoptysis. The patient has undergone cholecystectomy and treatment for reflux symptoms which have improved. She has been tested for strep in the past which has been negative and no prior history of pneumonia or tuberculosis exposure. She was given Keflex 2 months prior to being seen for inflammation around the uvula and a severe sore throat felt to be secondary to strep. She has also been treated for oral candidiasis. She is , has 3 sons and 3 grandchildren. 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 Her cough has persisted despite the above-mentioned treatments. Tessalon Perles have been ineffective additionally. She has had intermittent hoarseness. She has been prescribed Combivent Respimat 1 puff daily. Denies postnasal drainage or current reflux symptoms. She states her cough is worse when she gets" overheated." Her symptoms do not appear to be seasonal. The house is heated with a wood burner and she has wall to wall rugs in all rooms. There is 1 small dog present. There are no sharifa areas of mold or mildew regions in the house. BMI is 28.3 and she has undergone a sleep study in October of 2016. Her apnea and hypopnea index was 11.5. She was brought back for a CPAP titration study and a 5 cm first of water pressure, virtually all apneic episodes were ablated. A P10 mask was used. PFTs in 2014 showed an FEV1/FVC ratio of 78% with no bronchodilator administered. Lung volumes were not measured. Chest x-ray on 03/25/2017 showed no acute cardiopulmonary disease and a CAT scan of the chest done with contrast on July of 2015 suggest no acute process but micro nodularity was seen throughout both hemithoraces and unchanged from May of 2015. She has averaged a pack of cigarettes a day began smoking at age 16. No other occupational history is noted. For details of past medical history, medications, family and social history, I refer you to current and past record. PHYSICAL EXAMINATION: GENERAL: Well-developed, well-nourished white female in no obvious distress at rest. VITAL SIGNS: BMI 28.1, heart rate 86 and regular, O2 sat 95% on room air, temperature 97.5, blood pressure 122/68. SKIN: Without lesion. HEENT: Atraumatic, normocephalic, PERRLA, EOMI. Conjunctivae pink. Sclerae nonicteric. Fundi benign. Tympanic membranes within normal limits. Pharyngeal exam intact. NECK: Neck veins are not distended at 45 degrees. No obvious adenopathy in the supra or infraclavicular areas. LUNGS: Distant P&A. No rales or wheezes even on forced expiration. CARDIAC: Regular rate and rhythm. No murmurs or gallops. PMI nondisplaced. ABDOMEN: Soft, scaphoid. No evidence for hepatosplenomegaly. EXTREMITIES: No significant pedal edema, clubbing or cyanosis. NEUROLOGIC: Intact. No lateralizing signs. CT scan and the lab data is pending. ASSESSMENT: A 66-year-old white female with longstanding smoking history with persistent cough refractory to outpatient therapy scheduled for bronchoscopic evaluation. A repeat CT scanning of the chest and coagulation profile will be done prior to the study. Reconsider treatment for CPAP since these CPAP titration study has been completed. The patient returns to clinic following completion of these studies for more definitive discussion.
[2017-07-04] MEDS ORDERED: DEXTROSE 5% 1000ML 1,000 ML IV SCH (09:15)
[2017-07-04] MEDS ORDERED: ONDANSETRON INJ 2 MG/ML 2 ML VIAL ONE (09:31)
[2017-07-04] MEDS ORDERED: MIDAZOLAM HCL 5 MG/ML 1 ML VIAL IV ONE (10:08)
[2017-07-04] MEDS ORDERED: LIDOCAINE HCL 2% LOCAL 50ML VIAL INSTIL ONE (10:08)
[2017-07-04] MEDS ORDERED: OXYMETAZOLINE HCL 0.05% NA SPR 15 ML BTL ONE (10:08)
[2017-07-04] MEDS ORDERED: LIDOCAINE VISCOUS 2% 100ML TOP ONE (10:08)
[2017-07-04] MEDS ORDERED: LEVALBUTEROL 1.25MG/3ML NEB INH ONE (10:08)
[2017-07-04] MEDS ORDERED: FENTANYL CITRATE INJ 50 MCG/1 ML 2 ML VIAL IV ONE (10:08)
[2017-07-04] MEDS ORDERED: LIDOCAINE 4% INH SOLN 4 ML BTL TOP ONE (10:08)
--- NOTE | 2017-07-04 10:12 | [facility] Operative Report ---
Operative Report Operative Date Jul 04, 2017. Pre-Operative Diagnosis PULMONARY NODULE, ASTHMA, COUGH Post-Operative Diagnosis PULMONARY NODULE, ASTHMA, COUGH Procedure(s) Performed BRONCHOSCOPY Surgeon DR VIVAS Estimated Blood Loss 0 Findings Chronic Mucopurulent Bronchitis Specimens RIGHT LUNG AND LEFT LUNG WASHING Complication(s) None Disposition I attest to the content of the Intraoperative Record and any orders documented therein. Any exceptions are noted below.
--- NOTE | 2017-07-04 10:12 | Post Sedation Assessment ---
Post Sedation Assessment General Date of Sedation Jul 04, 2017. Vital Signs: Vital Signs Past 12 Hours Date Time Temp Pulse Resp B/P (MAP) Pulse Ox O2 Delivery O2 Flow Rate FiO2 07/04/17 10:05 89 18 137/82 98 Oxymask 6 07/04/17 10:00 84 18 161/93 95 Oxymask 6 07/04/17 09:55 98 14 129/79 99 Oxymask 6 07/04/17 09:50 95 20 138/78 98 Oxymask 6 07/04/17 09:45 86 15 147/80 95 Oxymask 6 07/04/17 09:40 70 14 161/85 98 Oxymask 6 07/04/17 08:16 36.6 78 20 161/80 (107) 96 Room Air Post Procedure Recovery Score Activity: (2) Moves 4 extremities * Respiration: (2) Deep breath/cough Circulation: (2) +/-20% PreAnes Value Consciousness: (2) Fully Awake Oxygen Saturation: (1) O2 needed for >90% Post Anesthesia Score: 9 Discharge Sedation Level of Care: Fast Track Phase II Post Sedation Plan On clinical assessment, the patient appears to have tolerated the sedation without complications. Patient is recovering as anticipated. Patient will continue to be monitored by nursing and may be discharged when sedation discharge criteria are met per below protocol. Upon Completions of procedure and additional 15 minutes continue every 5 minute vital signs and the P.A.R. score; then discharge to a Phase I or Fast Track to Phase II per the following guidelines: * Discharge Patient to appropriate Phase II area if PAR is 8 or greater or return to pre- procedure baseline. The post - procedure orders will be as directed. * If PAR score is less than 8 or not return to pre-procedure baseline then patient will follow Phase I monitoring till PAR is reached for Phase II. The Phase I may be done in procedure room or may call to secure a Phase I area. * If naloxone or flumazenil are used for reversal, hold in Phase I for an additional 60 -120 minutes before discharge to Phase II. Please call the Sedation Physician to re-evaluate and complete post-note for discharge to Phase II area. Do NOT discharge from procedure sedation or Phase 1 until post- sedation evaluation note is complete by procedure /sedation MD Sedation Discharge Instructions to be given to the patient at discharge to home.
[2017-07-04] MEDS ORDERED: NURSING VERBAL MED ORDER ONE (10:15)
--- NOTE | 2017-07-04 10:15 | Discharge Instructions ---
Discharge Instructions Date of Service Jul 04, 2017. Admission Reason for Admission: Pulmonary Nodule,Asthma,Cough Discharge Discharge Diagnosis / Problem: Chronic Mucopurulent Bronchitis Discharge Goals Goal(s): Therapeutic intervention Activity Recommendations Activity Limitations: resume your previous activity Lifting Limitations: none Exercise/Sports Limitations: none May Resume Sexual Activity: when tolerated Shower/Bathe: no limitations Driving or Machine Use: no limitations none . Instructions / Follow-Up Instructions / Follow-Up ACTIVITY RECOMMENDATIONS: * Rest today, resume normal activity tomorrow. * Do not drive today. SPECIAL CARE INSTRUCTIONS: * Call your physician if you experience any chest or shoulder pain, fever, coughing, spitting up blood (more than 2 teaspoons) or excessive shortness of breath. * Remove dressing from IV site (where needle was placed into the vein) after 2 hours. Apply a warm, moist compress to site if irritation occurs. Call physician if site becomes red or painful to touch. FOLLOW UP VISIT: * Keep any scheduled doctor appointments. Current Hospital Diet Patient's current hospital diet: regular Discharge Diet Recommended Diet: Regular Diet Fluid Restriction: None Procedures Procedures Performed: BRONCHOSCOPY Pending Studies Studies pending at discharge: no Medical Emergencies . Who to Call and When: Medical Emergencies: If at any time you feel your situation is an emergency, please call 911 immediately. . Non-Emergent Contact Non-Emergency issues call your: Car Sales Associate Call Non-Emergent contact if: temperature is above 101 . . "Provider Documentation" section prepared by Gonsalo Iyer. .
--- NOTE | 2017-07-04 11:13 | OPERATIVE REPORT ---
DATE OF OPERATION: 07/04/2017 PROCEDURE: Fiberoptic bronchoscopy with bronchoalveolar lavage. INDICATIONS: Persistent cough refractory to outpatient therapy. ANESTHESIA PREOPERATIVELY: None. ANESTHESIA DURING PROCEDURE: 5 mg IV Versed, 50 mcg IV fentanyl, 20 mL 2% Xylocaine spray above and below the cords, 4% viscous Xylocaine intranasally. DESCRIPTION OF THE PROCEDURE: Fiberoptic bronchoscope was inserted into the left naris with minimal difficulty and passed to the level of the true vocal cords. The cords appear to approximate normally with phonation without evidence for lesions or paralysis. The cords were anesthetized with 2% Xylocaine spray and the scope was then introduced in the trachea and right and left tracheobronchial tree. The trachea was within normal limits. The mehul was sharp. The right main stem bronchus was explored initially and no endobronchial lesions were seen. Right upper lobe, the apical posterior, anterior segments, bronchus intermedius, right middle lobe and the medial lateral segments and all basilar segments of right lower lobe were found to be free of endobronchial lesions with a small amount of mucopurulent secretion lavaged from right lower lobe until clear. Chronic inflammatory mucosal change was seen throughout the right tracheobronchial tree. Left tracheobronchial tree was explored and no endobronchial lesions seen. Left upper lobe at the apical-posterior and anterior segments, lingular subdivision, left lower lobe were all found to be free of endobronchial lesions down to the segmental and subsegmental bronchi. A moderate degree of global inflammatory mucosal change was seen throughout the left upper lobe and lingula subdivision. These regions were copiously lavaged with normosol and the aspirate was sent for appropriate studies. The mucosa was friable. No brushings or biopsies were attempted. Fluoroscopy was not utilized. The procedure was terminated. The patient was given a nebulizer treatment with Xopenex 1.25 mg and transferred to the medical treatment unit hemodynamically stable with no signs of respiratory compromise. We will await microbiological and cytologic examination of the bronchial washings. I attest to the content of the Intraoperative Record and any orders documented therein. Any exception s are noted below.
== END 2017-07-04 12:16 | disposition home or self-care (01) ==
LOC: C.ACU 07:23
PROVIDERS: ATTEND Internal Medicine Pulmonary Disease
DX: R05 Cough (principal); R91.8 Other nonspecific abnormal finding of lung field; B37.0 Candidal stomatitis; J45.909 Unspecified asthma, uncomplicated; G47.30 Sleep apnea, unspecified; F17.200 Nicotine dependence, unspecified, uncomplicated; K21.9 Gastro-esophageal reflux disease without esophagitis; I25.10 Atherosclerotic heart disease of native coronary artery without angina pectoris; E03.9 Hypothyroidism, unspecified; E78.00 Pure hypercholesterolemia, unspecified; Z90.49 Acquired absence of other specified parts of digestive tract; Z98.890 Other specified postprocedural states; Z90.710 Acquired absence of both cervix and uterus; Z79.82 Long term (current) use of aspirin; Z79.899 Other long term (current) drug therapy; Z88.1 Allergy status to other antibiotic agents; Z88.6 Allergy status to analgesic agent; Z88.8 Allergy status to other drugs, medicaments and biological substances; Z80.0 Family history of malignant neoplasm of digestive organs; Z80.3 Family history of malignant neoplasm of breast; Z82.49 Family history of ischemic heart disease and other diseases of the circulatory system

== ENCOUNTER → 2017-07-13 | Outpatient (CLI) | payer OTHER ==
[~2017-07-13] MED LIST changes: +IPRA1AER2 INH
--- NOTE | 2017-07-13 09:34 | DIAGNOSTIC IMAGING REPORT ---
SINUSES MIN 3 VIEWS ROUTINE CLINICAL HISTORY: 66 years-old Female presenting with J30.9 Allergic [id number]. TECHNIQUE: 4 views the sinuses were obtained. COMPARISON: CT head from 09/01/2016. FINDINGS: Paranasal sinuses and mastoid air cells are radiographically clear. No sclerosis of the maxilla sinus murphy. Minimal leftward deviation of the superior aspect of the bony nasal septum. Bony orbits intact. Mandible grossly intact. Cervical spine with degenerative change. IMPRESSION: No current evidence of acute or chronic sinusitis. Electronically signed by: Gene Nash M.D. 07/13/2017 9:33 AM Dictated Date/Time: 07/13/2017 9:32 AM
== END | disposition home or self-care (01) ==
LOC: C.RAD1850 08:59
PROVIDERS: ATTEND Internal Medicine Pulmonary Disease
DX: J45.909 Unspecified asthma, uncomplicated (principal)

== ENCOUNTER → 2017-07-27 | Outpatient (CLI) | payer OTHER ==
[2017-07-27 14:23] LABS: ALBUMIN 3.3 gm/dl (3.4-5.0); ALT/SGPT 18 U/L (12-78); AST/SGOT 11 U/L (15-37); BLOOD UREA NITROGEN 15 mg/dl (7-18); CALCIUM 8.4 mg/dl (8.5-10.1); CARBON DIOXIDE 31 mmol/L (21-32); CHOLESTEROL 178 mg/dl (0-200); GLUCOSE 81 mg/dl (70-99); LIPASE 73 U/L (73-393); POTASSIUM 3.8 mmol/L (3.5-5.1); SODIUM 138 mmol/L (136-145)
[2017-07-27 14:32] LABS: ALKALINE PHOSPHATASE 65 U/L (45-117); LDL CHOLESTEROL CALCULATED 81 mg/dl; TOTAL PROTEIN 6.4 gm/dl (6.4-8.2)
== END | disposition home or self-care (01) ==
LOC: C.LABBC 10:19
PROVIDERS: ATTEND Nurse Practitioner Family
DX: E78.00 Pure hypercholesterolemia, unspecified (principal); E03.9 Hypothyroidism, unspecified; R19.8 Other specified symptoms and signs involving the digestive system and abdomen

== ENCOUNTER → 2017-11-30 | Outpatient (CLI) | payer OTHER ==
[~2017-11-30] MED LIST changes: +CHOL100027 PO; -GABA-113 PO; -PRED20TA PO
[2017-11-30 10:01] LABS: BASO % 0.5 %; BASO ABS # 0.04 K/uL (0-0.2); EOS % 4.5 %; EOS ABS # 0.37 K/uL (0-0.5); HEMATOCRIT 43.1 % (37-47); HEMOGLOBIN 14.4 g/dL (12.0-16.0); IG# 0.02 K/uL (0.00-0.02); LYMPH % 27.1 %; LYMPH ABS # 2.22 K/uL (1.2-3.4); MEAN CELL VOLUME 89.8 fL (80-100); MEAN CORPUSCULAR HGB CONC 33.4 g/dl (32-36); MONO % 7.2 %; MONO ABS # 0.59 K/uL (0.11-0.59); NEUT % 60.5 %; NEUT ABS # 4.95 K/uL (1.4-6.5); PLATELET COUNT 287 K/uL (130-400); RED CELL DISTRIBUTION WIDTH CV 14.5 % (11.5-14.5); RED CELL DISTRIBUTION WIDTH SD 47.7 fL (36.4-46.3); WHITE BLOOD COUNT 8.19 K/uL (4.8-10.8)
--- NOTE | 2017-11-30 10:08 | DIAGNOSTIC IMAGING REPORT ---
TWO VIEW CHEST CLINICAL HISTORY: COPD exacerbation. FINDINGS: PA and lateral chest radiographs are compared to study dated 03/25/2017. Correlation is made with chest CT dated 06/09/2017. The cardiomediastinal silhouette is unremarkable. There is atherosclerotic calcification of the thoracic aorta. A small fat-containing Bochdalek hernia is incidentally noted on the lateral projection. Lungs are mildly hyperinflated. Chronic interstitial thickening is unchanged. No airspace consolidation or pleural effusion is identified. There is no pneumothorax. The skeletal structures are osteopenic. Mild degenerative change and scoliosis are noted in the thoracic spine. Cholecystectomy clips are identified in the right upper quadrant. IMPRESSION: No active disease in the chest. Electronically signed by: Kory Li M.D. 11/30/2017 10:07 AM Dictated Date/Time: 11/30/2017 10:06 AM
[2017-11-30 10:46] LABS: BLOOD UREA NITROGEN 12 mg/dl (7-18); CALCIUM 8.4 mg/dl (8.5-10.1); CARBON DIOXIDE 28 mmol/L (21-32); CREATININE 0.73 mg/dl (0.60-1.20); GLUCOSE 89 mg/dl (70-99); POTASSIUM 3.8 mmol/L (3.5-5.1); SODIUM 141 mmol/L (136-145)
== END | disposition home or self-care (01) ==
LOC: C.RAD 09:30
PROVIDERS: ATTEND Nurse Practitioner Family
DX: J44.1 Chronic obstructive pulmonary disease with (acute) exacerbation (principal); E03.9 Hypothyroidism, unspecified; E83.51 Hypocalcemia

== ENCOUNTER 2018-09-14 06:03 | Inpatient (IN) ==
--- NOTE | 2018-07-19 11:15 | PAT Medication Instructions ---
Medication Instructions Date of Service July 19, 2018 Home Medications Medication Instructions Recorded ondansetron 4 mg PO Q4H PRN #8 tab 03/10/18 aspirin 81 mg PO QAM atorvastatin 10 mg PO HS bupropion HCl (smoking deter) 150 mg PO DAILY calcium carbonate [Calcium 600] 600 mg PO BID cholecalciferol (vitamin D3) 2,000 units PO DAILY cyanocobalamin (vitamin B-12) 1,000 mcg PO QAM duloxetine 60 mg PO QAM levothyroxine 88 mcg PO QAM omeprazole 40 mg PO QAM ondansetron 4 mg PO Q4H PRN umeclidinium-vilanterol [Anoro Ellipta] 1 inh INHALATION DAILY PRN zolpidem 5 mg PO HS PRN ASK your surgeon for instructions aspirin 81 mg PO QAM DO NOT take the morning of surgery calcium carbonate [Calcium 600] 600 mg PO BID cholecalciferol (vitamin D3) 2,000 units PO DAILY cyanocobalamin (vitamin B-12) 1,000 mcg PO QAM Take morning of surgery With a small sip of water, OTHERWISE NOTHING TO EAT OR DRINK AFTER MIDNIGHT: bupropion HCl (smoking deter) 150 mg PO DAILY duloxetine 60 mg PO QAM levothyroxine 88 mcg PO QAM omeprazole 40 mg PO QAM ondansetron 4 mg PO Q4H PRN (if needed) umeclidinium-vilanterol [Anoro Ellipta] 1 inh INHALATION DAILY PRN (if needed) Take evening before surgery atorvastatin 10 mg PO HS calcium carbonate [Calcium 600] 600 mg PO BID ondansetron 4 mg PO Q4H PRN (if needed) umeclidinium-vilanterol [Anoro Ellipta] 1 inh INHALATION DAILY PRN (if needed) zolpidem 5 mg PO HS PRN (if needed) Other Notes If you have any questions please call us at [phone] or [phone] or [phone] or [phone]
--- NOTE | 2018-07-19 12:00 | Anesthesiology Consultation ---
Date of Service July 19, 2018 Assessment & Plan Chart Review Chart Review: Acceptable Risk for Surgery and Patient seen in Pre Admission Testing Teaching & Discussion Instructed NPO after midnight before surgery, except medications with 15 cc of water. Medication instructions provided according to the PAT guidelines. History Surgery Operation Date: 07/31/18 11:55 Proposed Procedures p C4-C6 Anterior Cervical Discectomy and Fusion, C5 Corpectomy - Yariel Kemp, Height/Weight Height: 5 ft 4 in Weight: 77.6 kg Allergies Allergy/AdvReac Type Severity Reaction Status Date / Time bacitracin Allergy Intermediate redness Verified 07/14/18 13:05 polymyxin B Allergy Intermediate redness Verified 07/14/18 13:05 amoxicillin Allergy Unknown RASH Verified 07/14/18 13:05 azithromycin AdvReac Unknown STOMACH Verified 07/14/18 13:40 IRRITATION codeine AdvReac Unknown n/v Verified 07/14/18 13:05 morphine AdvReac Unknown N/V Verified 07/14/18 13:05 moxifloxacin AdvReac Unknown nausea Verified 07/14/18 13:05 oxycodone AdvReac Unknown NAUSEA Verified 07/14/18 13:05 Tugkdlf-Sun-Giv Reductase AdvReac Unknown muscle Verified 07/14/18 13:05 Inhibitor weakness tramadol AdvReac Unknown nausea Verified 07/14/18 13:05 Medications Home Medications Medication Instructions Recorded Confirmed Last Taken aspirin 81 mg PO QAM 03/10/18 07/14/18 07/14/18 atorvastatin 10 mg PO HS 03/10/18 07/14/18 07/14/18 calcium carbonate [Calcium 600] 600 mg PO BID 03/10/18 07/14/18 Unknown cholecalciferol (vitamin D3) 2,000 units PO DAILY 03/10/18 07/14/18 Unknown [Vitamin D3] cyanocobalamin (vitamin B-12) 1,000 mcg PO QAM 03/10/18 07/14/18 07/14/18 [Vitamin B-12] duloxetine 60 mg PO QAM 03/10/18 07/14/18 07/14/18 levothyroxine 88 mcg PO QAM 03/10/18 07/14/18 07/14/18 omeprazole 40 mg PO QAM 03/10/18 07/14/18 07/14/18 ondansetron 4 mg PO Q4H PRN #8 tab 03/10/18 07/14/18 Unknown umeclidinium-vilanterol [Anoro 1 inh INHALATION DAILY PRN 03/10/18 07/14/18 Unknown Ellipta] zolpidem 5 mg PO HS PRN 03/10/18 07/14/18 Unknown Past Medical History Medical History COPD (chronic obstructive pulmonary disease) (Acute) Pulmonary nodules (Acute) Sleep apnea (Acute) JULY 25 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 Acid reflux Back pain INJECTION FOR 3 WKS AGO Cough HAS HAD FOR MONTHS, has been on prednisone and following with pulm, who feel cough is simply 2/2 COPD. CXR NAD 06/17/18. Hiatal hernia Knee pain R/INJECTION FEW WEEKS AGO Nausea and vomiting after administration of anesthetic agent Neck problem Past Surgical History Surgical History H/O hemorrhoidectomy (Acute) H/O: hysterectomy (Acute) History of cholecystectomy (Acute) History of arthroscopy of right knee History of cardiac cath 2015, all normal arteries except 30% stenosis of RCA. History of colonoscopy Past Anesthesia History No Hx of Anesthesia Complications (other than PONV) and No Family Hx of Anesthesia Complications History of PONV Yes (SEVERE) Motion Sickness Screening History of Motion Sickness: Yes Social History Smoking Status: Current every day smoker tobacco type: cigarettes Smoking cigarettes per day: 1 PPD - ADVISED NPO Do You Dip or Chew Tobacco: No Hx Alcohol Use: No Hx Substance Use: No substance use type: does not use Exercise / Class Metabolic Activity II 4-5 Yardwork/Stairs/Walk up hill (Denies CP or SOB with stairs) Review of Systems Pt denies any recent chest pain, shortness of breath, fever or URI. Persistent productive (clear phlegm) cough, has had pulm eval and bronchoscopy, reports breathing feels stable. Physical Exam Vital Signs BP: 142/82 (pt reports BP WNL at PCP office--review of [employer] office visit shows BP 120/76 on 07/05/18) P: 92bpm SPO2: 97% RA T: 98.0 F R: 12 ENMT Mouth: + dentures (full upper plate) and + chipped teeth; no loose teeth Thyromental Distance: > or= 3.5 Finger Breadths (3.5) Mallampati Class: I Missing all molars on bottom, few chips on bottom front teeth. Neck normal visual inspection; neck extension not limited Respiratory normal respiratory effort Auscultation: lungs clear to auscultation bilaterally Cardiovascular Rate/Rhythm: regular rate and regular rhythm Heart Sounds: + murmur (I/ systolic) Vessels: no carotid bruit Extremities: no edema Testing Electrocardiogram Date: 07/19/18 Findings: + NSR @ (85) ST and T wave abnormality, consider anterior ischemia. When compared with EKG of 01/28/2017, nonspecific T wave abnormality no evident in lateral leads. *Inverted T waves noted on EKGs dating back to 2006, ischemic workup negative 2006 and 2015 ([facility]). Chest X-Ray Date: 06/21/18 Findings: + NAD Cardiac Catheterization Date: 07/14/15 Abn ECG, typical angina. Right brachial venous access, right radial artery access. Normal LM, LAD, LCx system. Large OM1. Large Diag2. RCA: dominant. Proximal to mid RCA with mild 30% stenosis. RHC performed. OMT recommended. Laboratory Results 07/19/18 12:30 Blood Type O Positive 07/19/18 12:30 Antibody Screen NEGATIVE 07/19/18 12:30 PT 10.2 Seconds (9.0-12.0) 07/19/18 12:30 INR 1.0 (0.9-1.1) 07/19/18 12:30 APTT 23.5 Seconds (21.0-31.0) 07/19/18 12:30 Urine Color Dark Yellow 07/19/18 12:30 Urine Appearance Clear (Clear) 07/19/18 12:30 Urine pH 5.0 (4.5-7.5) 07/19/18 12:30 Ur Specific [place] 1.031 (1.000-1.030) H 07/19/18 12:30 Urine Protein Negative (Negative) 07/19/18 12:30 Urine Glucose (UA) Negative (Negative) 07/19/18 12:30 Urine Ketones Negative (Negative) 07/19/18 12:30 Urine Nitrite Negative (Negative) 07/19/18 12:30 Ur Leukocyte Esterase Trace (Negative) H 07/19/18 12:30 Urine WBC (Auto) 1-5 /hpf (0-5) 07/19/18 12:30 Urine RBC (Auto) 10-30 /hpf (0-4) H 07/19/18 12:30 U Hyaline Cast (Auto) 1-5 /lpf (0-5) 07/19/18 12:30 U Epithel Cells (Auto) >30 /lpf (0-5) H 07/19/18 12:30 Urine Bacteria (Auto) Negative (Negative) 07/19/18 12:30 Laboratory Tests 06/17/18 09:52 WBC 8.16 Hgb 14.4 Hct 42.8 Plt Count 269
[2018-07-19 14:02] LABS: Partial Thromboplastin Ratio 0.9; Partial Thromboplastin Time 23.5 Seconds (21.0-31.0); Prothrombin Time 10.2 Seconds (9.0-12.0)
[2018-07-19 14:06] LABS: Appearance Urine Clear (Clear); Bacteria Urine Automated Negative (Negative); Bilirubin Urine Negative (Negative); Blood Urine 1+ (Negative); Color Urine Dark Yellow; Epithelial Cell Urine Auto >30 /lpf (0-5); Glucose Urine UA Negative (Negative); Ketones Urine Negative (Negative); Leukocyte Esterase Urine Trace (Negative); Nitrite Urine Negative (Negative); Protein Urine Negative (Negative); Specific Gravity Urine 1.031 (1.000-1.030); Urobilinogen Urine Negative (Negative)
[2018-07-19 14:18] LABS: BUN Creatinine Ratio 24.9 (10-20); Calcium 8.5 mg/dl (8.5-10.1); Creatinine Clr Calc Pharmacy 76.4 ml/min; Est GFR (African American) 100.4; Est GFR (Non-African American) 86.7; Potassium 3.8 mmol/L (3.5-5.1)
[~2018-09-14 06:03] MED LIST changes: +ACETAMINOPHEN 500 MG TAB PO SCH; -ADVIN25/60 INH; -ALBU18002 INH; -ASPI1TAB83 PO; -ATOR10TA82 PO; +CHECK SCOPOLAMINE PATCH PLACEMENT SCH; -CHOL100027 PO; +CLINDAMYCIN 600 MG/54 ML BAG IV SCH; -CYAN100020 PO; +CeleBREX 200 MG CAP PO SCH; -FURO-85 PO; +GABAPENTIN 300 MG PO SCH; -IPRA1AER2 INH; -LEVO88TA PO; +LR 15ML/HR IV SCH; +MISSING PHYSICIAN SIGNATURE ON ORDER SCH; +ROPIVACAINE 0.5% HCL/PF 150 MG, BUPIVACAINE 0.5% MPF 30 ML, EPINEPHrine 30MG/30ML (OR U... INFIL SCH; +SCOPOLAMINE 1.5 MG TDSY TD SCH; -ZOLP5TAB PO
[2018-09-14] MEDS ORDERED: fentaNYL citrate 100 MCG/2 ML VIAL IV PRN (06:31)
[2018-09-14] MEDS ORDERED: ePHEDrine sulfate 50 MG/ML AMP IV PRN (06:31)
[2018-09-14] MEDS ORDERED: ONDANSETRON INJ 2 MG/ML 2 ML VIAL IV PRN ×2 (06:31→11:48)
[2018-09-14] MEDS ORDERED: ATROPINE SULFATE 0.1 MG/ML 10ML SYR IV PRN (06:31)
[2018-09-14] MEDS ORDERED: HYDROmorphone INJ 1 MG/ML SYRINGE IV PRN (06:31)
[2018-09-14] MEDS ORDERED: PROPOFOL IV EMULSION 10 MG/ML 20 ML VIAL IV ONE (06:59)
[2018-09-14] MEDS ORDERED: ONDANSETRON INJ 2 MG/ML 2 ML VIAL ONE (06:59)
[2018-09-14] MEDS ORDERED: DEXAMETHASONE SOD INJ 4 MG/ML VIAL ONE (06:59)
[2018-09-14] MEDS ORDERED: GLYCOPYRROLATE 0.2 MG/ML VIAL ONE (06:59)
[2018-09-14] MEDS ORDERED: NEOSTIGMINE METHYLSULFATE 1 MG/ML 10ML VIAL ONE (06:59)
[2018-09-14] MEDS ORDERED: MIDAZOLAM HCL 1 MG/ML 2ML VIAL ONE (06:59)
[2018-09-14] MEDS ORDERED: fentaNYL citrate 100 MCG/2 ML VIAL ONE ×3 (06:59→09:52)
[2018-09-14] MEDS ORDERED: LIDOCAINE HCL 2% 2 ML VIAL/AMP(20MG/ML) INFIL ONE (06:59)
[2018-09-14] MEDS ORDERED: ALBUT/IPRATROP 3MG/0.5MG NEB 3 ML VIAL INH STA (07:14)
[2018-09-14] MEDS ORDERED: ALBUT/IPRATROP 3MG/0.5MG NEB 3 ML VIAL INH PRN (07:16)
[2018-09-14] MEDS ORDERED: BACITRACIN INJ 50,000 UNIT VIAL ONE (07:40)
[2018-09-14] MEDS ORDERED: ALBUTEROL HFA INHALER 8.5 GM ONE (07:47)
--- NOTE | 2018-09-14 07:59 | History & Physical Bridge Note ---
Date of Service September 14, 2018 History & Physical Bridge Note I have examined the patient, reviewed the History & Physical and in the interval since the performance of the History & Physical I have noted the following changes of clinical significance: no changes noted
--- NOTE | 2018-09-14 08:00 | History & Physical Report ---
Date of Service September 14, 2018 Assessment & Plan (1) Cervical stenosis of spinal canal: C5 corpectomy C4-C6 anterior cervical discectomy and fusion Present on Admission?: Yes History of Present Illness Chief Complaint: Neck and arm pain Primary Care Provider: Alec Lua, III, ROTOR PILOT This is a 67-year-old female presents with chronic neck and bilateral arm symptoms. After failing extensive course of nonoperative care she is here for surgical intervention. Allergies Allergy/AdvReac Type Severity Reaction Status Date / Time bacitracin Allergy Intermediate redness Verified 09/14/18 06:23 polymyxin B Allergy Intermediate redness Verified 09/14/18 06:23 amoxicillin Allergy Unknown RASH Verified 09/14/18 06:23 sulfamethoxazole AdvReac Severe hives, gi Verified 09/14/18 06:23 [From Bactrim] upset, sob trimethoprim [From Bactrim] AdvReac Severe hives, gi Verified 09/14/18 06:23 upset, sob azithromycin AdvReac Unknown STOMACH Verified 09/14/18 06:23 IRRITATION codeine AdvReac Unknown n/v Verified 09/14/18 06:23 morphine AdvReac Unknown N/V Verified 09/14/18 06:23 moxifloxacin AdvReac Unknown nausea Verified 09/14/18 06:23 oxycodone AdvReac Unknown NAUSEA Verified 09/14/18 06:23 Rcypwdu-Nrj-Ylr Reductase AdvReac Unknown muscle Verified 09/14/18 06:23 Inhibitor weakness tramadol AdvReac Unknown nausea Verified 09/14/18 06:23 Home Medications Home Medications Medication Instructions Recorded Confirmed Type Anoro Ellipta 1 inh INHALATION DAILY PRN 03/10/18 08/22/18 History aspirin 81 mg PO QAM 03/10/18 08/22/18 History atorvastatin 10 mg PO HS 03/10/18 08/22/18 History calcium carbonate [Calcium 600] 600 mg PO BID 03/10/18 09/14/18 History cholecalciferol (vitamin D3) 2,000 units PO DAILY 03/10/18 09/14/18 History [Vitamin D3] cyanocobalamin (vitamin B-12) 1,000 mcg PO QAM 03/10/18 08/22/18 History [Vitamin B-12] duloxetine 60 mg PO QAM 03/10/18 08/22/18 History levothyroxine 88 mcg PO QAM 03/10/18 08/22/18 History omeprazole 40 mg PO QAM 03/10/18 08/22/18 History ondansetron 4 mg PO Q4H PRN #8 tab 03/10/18 08/22/18 Rx zolpidem 5 mg PO HS PRN 03/10/18 09/14/18 History melatonin 5 mg PO HS PRN 08/17/18 09/14/18 History diphenhydramine HCl [Benadryl] 25 mg PO Q6H PRN 08/22/18 09/14/18 History sulfamethoxazole-trimethoprim 1 tab PO BID 08/22/18 09/14/18 History [Bactrim DS] Past Med/Surg History Medical History Acid reflux Back pain INJECTION FOR 3 WKS AGO Cough HAS HAD FOR MONTHS, has been on prednisone and following with pulm, who feel cough is simply 2/2 COPD. CXR NAD 06/17/18. Hiatal hernia Knee pain R/INJECTION FEW WEEKS AGO Neck problem COPD (chronic obstructive pulmonary disease) (Acute) Pulmonary nodules (Acute) Sleep apnea (Acute) JULY 25 SCHEDULED TO [employer] CPAP Hyperlipidemia (Chronic) Hypothyroidism (Chronic) Migraines (Chronic) Abnormal EKG Prompted stress echo 2007, WNL. Surgical History History of arthroscopy of right knee History of cardiac cath 2015, all normal arteries except 30% stenosis of RCA. History of colonoscopy Nausea and vomiting after administration of anesthetic agent H/O hemorrhoidectomy (Acute) H/O: hysterectomy (Acute) History of cholecystectomy (Acute) Social History Preferred Language: Spanish Communication Ability: Effective Floor Plan Adjuster Required: No Beliefs That Will Affect Care: None Current Living Situation: Family Current Living Situation Comment: 2 SONS LIVES WITH PT Other Information That Helps Us Care for You: No Feels Safe at Home: Yes Smoking Status: Current every day smoker Tobacco Type: cigarettes Cigarettes Per Day: 1 PPD - ADVISED NPO Do You Dip or Chew Tobacco: No Second Hand Exposure: No Tobacco Cessation Education Requested by Patient: No Hx Alcohol Use: No Hx Substance Use: No Physical Exam Vital Signs (Past 24 Hours): Last Vital Signs Temp 36.6 C 09/14/18 06:43 Pulse 71 05/30/19 07:28 Resp 16 09/14/18 07:28 BP 156/98 H 09/14/18 06:43 Pulse Ox 93 09/14/18 07:28 Physical Exam: Patient is neurologically intact alert and oriented.
[2018-09-14] MEDS ORDERED: FLOSEAL HEMOSTATIC MATRIX 10ML TOP ONE (08:54)
[2018-09-14] MEDS ORDERED: ROCURONIUM BROMIDE 10 MG/ML 5 ML VIAL ONE (09:15)
[2018-09-14] MEDS ORDERED: SUCCINYLCHOLINE CHLORIDE 20 MG/ML 10 ML VIAL ONE (09:15)
--- NOTE | 2018-09-14 10:00 | Operative Report ---
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 2 anterior cervical arthrodesis C4-C6. #3 placement of cage 23 mm in height filled with autograft and DBM C4-5. #4 application of globus plate and screws from C4-C6. Surgeon Yariel Kemp, Department Sales Manager Gina Montenegro Estimated Blood Loss 50 Findings Consistent with Post-Op Diagnosis Specimens None Indications This is a 67-year-old female who presents with above-mentioned diagnosis. After failing extensive course of nonoperative care she like to undergo the above- mentioned procedure. Description of Procedure Patient was met with identified and informed consent obtained. Patient was then taken to the operative suite underwent intubation placed in supine position Chris table with head Cm head of marketing. All bony prominences well-padded eyes inspected to ensure no external pressure placed upon the peer at this point the anterior cervical spine was prepped and draped in a normal sterile fashion. With the assistance of fluoroscopy identified the C5 vertebral body and a transverse incision placed on the right anterior aspect of the cervical spine overlying this region. Sharp dissection with the assistance of bipolar electrocautery was performed down to and exposing the anterior cervical spine from C4-C6. Self-retaining retractors placed. Then performed a complete discectomy of C5-6 out to the uncovertebral joints bilaterally followed by C6-7. Brewster distracting pins were then placed in C4 and C6 to distract across the C5 body. I then performed a complete corpectomy including removal of all posterior annular fibers longitudinal ligament bilateral foraminotomies. After complete decompression endplates were burred to subcortical bleeding bone and a 23 mm peek cage filled with local autograft and DBM tapped in position. Distraction apparatus was removed and a globus plate and screws applied with the assistance of fluoroscopy. Incision was then copious irrigated fluoroscopy to ensure no damage to surrounding structures remaining bleeding. 10 round TOM drain inserted. Was then closed with 2 Vicryl in the fascia and 4 Monocryl for final skin closure. Steri-Strip sterile dressing placed. Patient awakened taken to PACU stable condition. Please note Gina Montenegro present throughout the entire procedure note the patient positioning the proximal portions of the surgery and final skin closure. Lastly spinal cord monitoring was utilized throughout the procedure and no changes noted. I attest to the content of the Intraoperative Record and any orders documented therein. Any exceptions are noted below.
[2018-09-14] MEDS: MISSING PHYSICIAN SIGNATURE ON ORDER SCH ×3 (11:12→11:15)
--- NOTE | 2018-09-14 11:29 | Anesthesiology Progress Note ---
Date of Service September 14, 2018 Anesthesia Post Procedure Vital Signs Vital Signs: Temp Pulse Pulse Resp BP Pulse Ox 09/14/18 11:25 65 17 136/82 100 09/14/18 11:15 36.2 C L 63 18 137/78 100 09/14/18 11:05 67 12 144/82 H 100 09/14/18 10:55 61 13 133/77 100 09/14/18 10:45 69 15 149/73 H 96 09/14/18 10:35 76 18 146/77 H 100 09/14/18 10:29 81 16 99 09/14/18 10:28 81 16 99 09/14/18 10:25 89 12 129/57 L 100 09/14/18 10:18 36.0 C L 94 H 14 133/72 99 09/14/18 07:28 71 16 93 09/14/18 06:43 36.6 C 75 20 156/98 H 96 Pain Intensity Bilateral Shoulder: Pain Intensity: 5 Transfer of Care Handoff Completed per policy Notes Mental Status: alert / awake / arousable and participated in evaluation Patient Amnestic to Procedure: Yes Nausea / Vomiting: adequately controlled Pain: adequately controlled Airway Patency, RR, SpO2: stable & adequate BP & HR: stable & adequate Hydration State: stable & adequate Anesthetic Complications: no major complications apparent and Pt Satisfied with anesthetic care
--- NOTE | 2018-09-14 11:47 | Fluoroscopy Report ---
FL cervical 2-3V CLINICAL HISTORY: ACDF C4-6/C5 COPECTOMY COMPARISON STUDY: None FLUOROSCOPY TIME: 8 seconds NUMBER OF FLUOROSCOPIC IMAGES: 2 FINDINGS: Image intensifier utilization for C4-C6 anterior fusion and corpectomy. Alignment is anatom ic. IMPRESSION: Image intensifier utilization for an anterior cervical fusion and corpectomy. The above report was generated using voice recognition software. It may contain grammatical, syntax or spelling errors. Electronically signed by: Alfredo Warner M.D. 09/14/2018 11:46 AM
[2018-09-14] MEDS ORDERED: DiphenhydrAMINE HCL 50 MG/ML VIAL IV PRN (11:48)
[2018-09-14] MEDS ORDERED: RACEPINEPHRINE 2.25% NEBU SOLN 0.5 ML VIAL INH PRN (11:48)
[2018-09-14] MEDS ORDERED: ACETAMINOPHEN 1,000 MG/100 ML VIAL IV PRN (11:48)
[2018-09-14] MEDS ORDERED: HYDROmorphone INJ 0.5 MG/0.5 ML SYR IV PRN (11:48)
[2018-09-14] MEDS ORDERED: NALOXONE HCL 0.4 MG/1 ML VIAL/CARP IV PRN (11:48)
[2018-09-14] MEDS ORDERED: NON-FORMULARY MEDICATION (Melatonin 5 MG) PO PRN (11:48)
[2018-09-14] MEDS ORDERED: MAGNESIUM HYDROXIDE SUSP 30 ML UDC PO PRN (11:48)
[2018-09-14] MEDS ORDERED: LORazepam 0.5 MG/1 ML VIAL IV PRN (11:48)
[2018-09-14] MEDS ORDERED: DO NOT ADMINISTER FLU VACCINE PRN (11:48)
[2018-09-14] MEDS ORDERED: LORazepam 0.5 MG TAB PO PRN (11:48)
[2018-09-14] MEDS ORDERED: ONDANSETRON 4 MG OD TAB PO PRN (11:48)
[2018-09-14] MEDS ORDERED: DO NOT ADMINISTER PNEUMOCOCCAL VACCINE PRN (11:48)
[2018-09-14] MEDS ORDERED: ZOLPIDEM TARTRATE 5 MG TAB PO PRN (11:48)
[2018-09-14] MEDS ORDERED: DEXAMETHASONE SOD PHOSPHATE 8 MG in SYRINGE 0 ML IV PRN (11:48)
[2018-09-14] MEDS ORDERED: SCOPOLAMINE 1.5 MG TDSY TD SCH (12:30)
[2018-09-14] MEDS: LACTATED RINGER'S 1,000 ML IV SCH (12:51)
[2018-09-14] MEDS ORDERED: COUGH DROP (SUGAR FREE) LOZ 24 LOZ/1 BOX BUCCAL STA (13:49)
[2018-09-14] MEDS ORDERED: COUGH DROP (SUGAR FREE) LOZ 24 LOZ/1 BOX BUCCAL ONE (13:50)
[2018-09-14] MEDS ORDERED: CHECK SCOPOLAMINE PATCH PLACEMENT SCH (16:00)
[2018-09-14] MEDS: CLINDAMYCIN 600 MG in DEXTROSE 5% 50 ML IV SCH (16:54)
[2018-09-14] MEDS: CHECK SCOPOLAMINE PATCH PLACEMENT SCH (16:56)
[2018-09-14] MEDS: DOCUSATE SODIUM 100 MG CAP PO SCH (20:50)
[2018-09-14] MEDS ORDERED: ATORVASTATIN 10 MG TAB PO SCH (21:00)
[2018-09-15] MEDS: LACTATED RINGER'S 1,000 ML IV SCH (02:40)
[2018-09-15] MEDS ORDERED: LEVOTHYROXINE SODIUM 88 MCG TABLET PO SCH (06:30)
--- NOTE | 2018-09-15 07:50 | Anesthesiology Progress Note ---
Date of Service September 15, 2018 Anesthesia Post Procedure Vital Signs Vital Signs: Temp Pulse Pulse Resp BP Pulse Ox Pulse Ox 09/15/18 07:26 65 14 99 09/15/18 04:45 36.6 C 61 18 136/84 96 09/15/18 03:32 61 16 98 09/15/18 02:42 36.6 C 58 L 16 144/87 H 97 09/15/18 01:58 90 09/15/18 00:45 36.5 C 65 16 145/88 H 93 09/14/18 23:17 67 16 98 09/14/18 22:52 36.8 C 64 16 137/84 92 09/14/18 20:48 36.4 C L 77 18 123/79 94 09/14/18 20:00 67 18 95 09/14/18 18:52 36.8 C 72 18 124/74 96 09/14/18 16:46 36.5 C 68 18 123/81 97 09/14/18 16:00 68 18 90 09/14/18 14:39 36.8 C 83 16 124/77 98 09/14/18 13:18 36.5 C 66 18 130/75 95 09/14/18 12:49 36.4 C L 77 18 124/77 97 09/14/18 12:17 36.5 C 84 18 128/75 97 09/14/18 11:48 100 09/14/18 11:45 36.6 C 65 14 148/76 H 100 09/14/18 11:25 65 17 136/82 100 09/14/18 11:15 36.2 C L 63 18 137/78 100 09/14/18 11:05 67 12 144/82 H 100 09/14/18 10:55 61 13 133/77 100 09/14/18 10:45 69 15 149/73 H 96 09/14/18 10:35 76 18 146/77 H 100 09/14/18 10:29 81 16 99 09/14/18 10:28 81 16 99 09/14/18 10:25 89 12 129/57 L 100 09/14/18 10:18 36.0 C L 94 H 14 133/72 99 Pain Intensity Bilateral Shoulder: Pain Intensity: 3 Neck: Pain Intensity: 3 Notes Mental Status: alert / awake / arousable and participated in evaluation Nausea / Vomiting: adequately controlled Pain: adequately controlled Airway Patency, RR, SpO2: stable & adequate BP & HR: stable & adequate Hydration State: stable & adequate
[2018-09-15] MEDS: DOCUSATE SODIUM 100 MG CAP PO SCH (08:23)
[2018-09-15] MEDS: CLINDAMYCIN 600 MG in DEXTROSE 5% 50 ML IV SCH ×2 (08:23)
[2018-09-15] MEDS: CHECK SCOPOLAMINE PATCH PLACEMENT SCH ×2 (08:23)
[2018-09-15] MEDS ORDERED: CHOLECALCIFEROL 1,000 UNITS TAB PO SCH (09:00)
[2018-09-15] MEDS ORDERED: PANTOprazole 40 MG TAB PO SCH (09:00)
[2018-09-15] MEDS ORDERED: DULOXETINE HCL 60 MG CAP PO SCH (09:00)
[2018-09-15] MEDS ORDERED: ASPIRIN 81 MG ECTAB PO SCH (09:00)
--- NOTE | 2018-09-15 15:52 | Discharge Summary ---
Date of Service September 15, 2018 Admission HPI Per Admitting Provider This is a 67-year-old female presents with chronic neck and bilateral arm symptoms. After failing extensive course of nonoperative care she is here for surgical intervention. Principal Diagnosis Cervical spinal stenosis with myeloradiculopathy Discharge Data Allergies Allergy/AdvReac Type Severity Reaction Status Date / Time bacitracin Allergy Intermediate redness Verified 09/14/18 06:23 polymyxin B Allergy Intermediate redness Verified 09/14/18 06:23 amoxicillin Allergy Unknown RASH Verified 09/14/18 06:23 sulfamethoxazole AdvReac Severe hives, gi Verified 09/14/18 06:23 [From Bactrim] upset, sob trimethoprim [From Bactrim] AdvReac Severe hives, gi Verified 09/14/18 06:23 upset, sob azithromycin AdvReac Unknown STOMACH Verified 09/14/18 06:23 IRRITATION codeine AdvReac Unknown n/v Verified 09/14/18 06:23 morphine AdvReac Unknown N/V Verified 09/14/18 06:23 moxifloxacin AdvReac Unknown nausea Verified 09/14/18 06:23 oxycodone AdvReac Unknown NAUSEA Verified 09/14/18 06:23 Zmjgagc-Btd-Eri Reductase AdvReac Unknown muscle Verified 09/14/18 06:23 Inhibitor weakness tramadol AdvReac Unknown nausea Verified 09/14/18 06:23 Procedures Performed Operation Date: 07/31/18 09:55 <No data on this case meets the specified criteria> Operation Date: 09/14/18 07:45 Actual Procedures p C5 Corpectomy, C4-C6 Anterior Cervical Discectomy and Fusion, Spinal Cord Monitoring(Not Applicable) - Yariel Kemp DO Ordered Studies 09/14/18 07:45 FL cervical 2-3V Routine FL fluoroscopy <1hr Routine Hospital Course (1) Cervical stenosis of spinal canal: Patient underwent anterior cervical corpectomy and fusion tolerated this well was taken to the orthopedic floor postoperatively. Postop day #1 arm symptoms are markedly improved. Swallowing well note. No hoarseness. Subsequently discharged home. Discharge orders and instructions from the chart for further review. Total Time Total Time Spent Total Time Spent (In Minutes): 20 minutes Discharge Plan Discharge Items Patient Disposition: Home - Self-Care Reason For Visit: Spinal Stenosis, Cervical Region C4-C6 Discharge Diagnosis: cervical stenosis Discharge Goals: Decrease discomfort Activity: Per 'Additional Instructions' section Non-emergency contact: Primary Care Provider Call non-emergency contact if: you have any medication questions Follow-up/Referrals: Alec Lua III, CRNP [Primary Care Provider] - Diet: Regular Addtl Provider Instructions: ACTIVITY RECOMMENDATIONS: SELF CARE INSTRUCTIONS AFTER CERVICAL FUSIONS 1. No smoking. Smoking drastically decreases the chance of a solid fusion. 2. No bending, lifting more than 5 pounds, or twisting (roll like a log when turning in bed). 3. You may shower 3 days after surgery. Thoroughly dry wound. Do not soak in the tub. 4. Cervical collar: Must be worn at all times including sleeping. You may remove the brace only to bath, eat and if you are sitting in a recliner. 5. Please walk as much as you can for exercise. Gradually increase the distance that you walk as your endurance increases. SPECIAL CARE INSTRUCTIONS: VERY IMPORTANT TO READ AND REVIEW A. Do not take any anti-inflammatory medications (i.e. Indocin, Advil, Aspirin, Naprosyn, Aleve, Motrin, etc.) as these may inhibit the chance of a solid fusion. Tylenol is okay to take. B. Your surgical incision has been closed with a cosmetic suture under the skin that will dissolve in about 6 weeks. In 14 days, you can use a pair of clean scissors and cut the suture that is left outside of the skin at the ends of your incision. C. Complications are uncommon, but please contact us if you have any signs or symptoms of: 1. wound infection (fever higher than 102.5 degrees F, redness, separation of wound, drainage, or increasing pain from the incision) 2. blood clots in legs (pain, swelling, redness and warmth in legs) 3. urinary tract infection (fever higher than 102.5 degrees, burning upon urination or increased frequency of urination) 4. nerve problems (inability to walk on your toes or heels, numbness, loss of bowel or bladder control) 5. any other symptoms that concern you. D. Please call the office at if you have any concerns or questions about your operation or recovery. MANAGING PAIN AFTER SPINAL SURGERY 1. Narcotic medication is intended for short-term use and will be provided for surgical pain. Surgical pain usually lasts for a period of 4-6 weeks. Narcotic medication includes Percocet, Vicodin, Darvocet, Tylenol #3 or Lortab. 2. Longer-term pain is more appropriately treated with non-narcotic medication such as Tylenol ES. 3. Muscle spasm is not appropriately treated with narcotics. Muscle relaxers such as Soma, Flexeril or Skelaxin can be used along with Tylenol ES. 4. Remember that we all live with some "aches and pains". This is not unusual or uncommon after an injury or as we get older. 5. We will provide appropriate medication within the normal guidelines of their prescribed use. We will also be very cautious and aware of potential abuse and extended duration of patients' medication needs. 6. Please allow 2-3 days to process refills. Prescriptions will not be mailed but must be picked up at the office. FOLLOW UP VISIT: Keep your scheduled follow-up appointment. Any questions, please call the office at . Prescriptions: Continued atorvastatin 10 mg tablet 10 mg PO HS RF: 0 cyanocobalamin (vitamin B-12) [Vitamin B-12] 1,000 mcg Tablet 1,000 mcg PO QAM RF: 0 omeprazole 40 mg capsule,delayed release(DR/EC) 40 mg PO QAM RF: 0 aspirin 81 mg Tablet,Delayed Release (Dr/Ec) 81 mg PO QAM RF: 0 levothyroxine 88 mcg tablet 88 mcg PO QAM RF: 0 duloxetine 60 mg capsule,delayed release(DR/EC) 60 mg PO QAM RF: 0 cholecalciferol (vitamin D3) [Vitamin D3] 2,000 unit Capsule 2,000 units PO DAILY RF: 0 zolpidem 5 mg Tablet 5 mg PO HS PRN (Reason: Sleep) RF: 0 Anoro Ellipta 62.5-25 mcg/actuation Blister With Device 1 inh INHALATION DAILY PRN (Reason: COPD) RF: 0 calcium carbonate [Calcium 600] 600 mg calcium (1,500 mg) Tablet 600 mg PO BID RF: 0 ondansetron 4 mg tablet,disintegrating 4 mg PO Q4H PRN (Reason: nausea and vomiting) Qty: 8 RF: 0 melatonin 1 mg Tablet 5 mg PO HS PRN (Reason: Sleep) RF: 0 sulfamethoxazole-trimethoprim [Bactrim DS] 800-160 mg tablet 1 tab PO BID RF: 0 diphenhydramine HCl [Benadryl] 25 mg Capsule 25 mg PO Q6H PRN (Reason: Allergic Reaction) RF: 0 Stand-Alone Forms: [facility] Discharge Orders: Discharge Order (Routine); Ordered 09/15/18 Ordered By: Yariel Kemp Admission Data Admit Date/Time: 09/14/18 10:04 Attending Provider: Yariel Kemp Admit Provider: Yariel Kemp Primary Care Provider: Alec Lua III Service: Surgical Services Other Interventions: Discharge Summary Assessment (RN) Last Done: 09/15/18 11:00 DC Date/Time DO NOT enter until pt leaves facility: 09/15/18 12:21
== END 2018-09-15 12:21 | disposition home or self-care (01) | DRG 473 ==
LOC: ASU 06:03 → 3E 10:04